=== PATIENT | male | born 1940 | race Caucasian/White ===

== ENCOUNTER 2016-10-13 09:54 | Inpatient (IN) ==
--- NOTE | 2016-10-13 10:35 | Emergency Department Note ---
Disposition Clinical Impression: Atrial fibrillation with rapid ventricular response Disposition: Admitted As Inpatient Condition: Fair Referrals: Rafael Ugarte MD [Primary Care Provider] - Forms: ED Satisfaction Letter Time of Disposition: 14:32 Arrhythmia/Palpitations HPI - General Chief Complaint: ED Arrhythmia/Palpitations Stated Complaint: "a-fib", EARLINE Time Seen by Provider: 10/13/16 10:23 Source: patient, family Mode of arrival: private vehicle Limitations: no limitations Nursing Notes Reviewed: Yes Vital Signs Reviewed: Yes - History of Present Illness Pt Subjective Complaint: rapid heart beat, atrial fibrillation Onset (ago): day(s) (About 3 days) Duration: constant Severity: severe Context: occurred during rest Arrhythmia History: atrial fibrillation Associated symptoms: Reports: shortness of breath. Denies: chest pain - Related Data Home Medications Medication Instructions Recorded Confirmed Aspirin 81 mg PO DAILY 09/29/15 10/13/16 Cholecalciferol (D-3) [Vitamin D] 2,000 unit PO DAILY 09/29/15 10/13/16 Finasteride [Proscar] 5 mg PO DAILY 09/29/15 10/13/16 Multivitamin [Multi-Day Vitamins] 1 each PO DAILY 09/29/15 10/13/16 Tamsulosin [Flomax] 0.4 mg PO DAILY 09/29/15 10/13/16 Vitamin E 100 unit PO DAILY 09/29/15 10/13/16 Atorvastatin [Lipitor] 40 mg PO HS 10/13/16 10/13/16 Cefdinir [Omnicef] 300 mg PO BID 10/13/16 10/13/16 Furosemide [Lasix] 20 mg PO DAILY 10/13/16 10/13/16 Warfarin [Coumadin] 10 mg PO 1800 10/13/16 10/13/16 Previous Rx's Medication Instructions Recorded Diltiazem CD (24hr) [Cardizem CD] 360 mg PO DAILY #30 cap.er.24h 10/03/15 Metoprolol XL (24 HR) Succ [Toprol 75 mg PO BID #60 tab.er.24h 10/03/15 Xl] Allergies Allergy/AdvReac Type Severity Reaction Status Date / Time No Known Allergies Allergy Verified 10/13/16 13:07 All systems ED: reviewed and negative except as stated. Constitutional: Denies: fever, chills ENT ED: Denies: ear pain, throat pain Cardiovascular: Denies: chest pain Respiratory: Reports: cough (And patient has been treated with 2 rounds of antibiotics for this cough which preceded the onset of rapid heart rate.), dyspnea Gastrointestinal: Denies: abdominal pain, nausea, vomiting Musculoskeletal: Denies: back pain Integumentary: Denies: rash Neurological: Denies: headache Past Medical History - Past Medical History Attestation: Yes The following information was validated with the patient. Source: patient, obtained from family, nursing notes reviewed Medical history: Reports: atrial fibrillation, other Surgical history: Reports: hip replacement, other Psychiatric history: Reports: no psych history - Social History Smoking Status: Never smoker Smokeless Tobacco Status: No Alcohol use: Reports: none Drug use: Reports: none Physical Exam - General Limitations: no limitations General appearance: alert, other (Appears a bit short of breath) - Head Head exam: atraumatic, normocephalic - Eye Eye exam: Present: normal appearance, PERRL, EOMI - ENT ENT exam: normal exam, normal oropharynx, mucous membranes moist, normal external ear exam - Neck Neck exam: Present: normal inspection, full ROM, trachea midline - Chest Chest inspection: Present: normal inspection, symmetric chest wall rise. Absent : tenderness - Respiratory Respiratory exam: Present: normal lung sounds bilaterally, other (Patient is tachypneic). Absent: wheezes - Cardiovascular Cardiovascular exam: Present: tachycardia, irregular rhythm - Abdominal Exam Abdominal exam: Present: soft, Non-Tender, normal bowel sounds - Extremities Exam Extremities exam: Present: normal inspection, full ROM, pedal edema (Very trace edema which patient says has been like that for a while.) - Back Exam Back exam: Present: normal inspection, full ROM. Absent: tenderness - Neurological Exam Neurological exam: Present: alert, oriented X3 - Psychiatric Psychiatric exam: Present: normal affect, normal mood - Skin Skin exam: Present: warm, dry. Absent: rash Course Course Narrative: Patient is a respiratory clear palpitations for the past 3 days. He is in atrial fibrillation with rapid ventricular response in the 170 range. He feels short of breath with it but no chest pain. Clinical examination is not consistent with congestive heart failure. We will start Cardizem. We are aware that the patient is on amiodarone and thus we will have to monitor the patient closely. We will also do a arrhythmia workup to look for other causes. According to the patient and family had his INR checked and is INR was only 1.4 on Friday. We will recheck that and if he still subtherapeutic we will start heparin. - Reevaluation(s) Reevaluation #1: Patient was a bit hypotensive before administration of the Cardizem. His heart rate is 170 something and he has been in this A. fib RVR for several days. Although his blood pressure is low he does not feel sick or in distress at this point. Therefore I am not going to cardiovert him. I will cautiously administer Cardizem. He had gotten the initial bolus and the drip is started but heart rate is still in the 160s so I am going to give the second dose of 15 mg of Cardizem. We will continue titration as long as he tolerates. Time: 11:38 Reevaluation #2: We have pretty much maximized the Cardizem without success. I went and spoke with the counter sales representative, , to help guide further treatment. Reviewing records with her refiled the patient has significant mitral valve regurgitation. This is probably what is making it difficult to get the A. fib under control. Having the lower blood pressure will be beneficial however. After vigorous review of the records and EKGs and results, the decision was made to heparinize the patient to make sure he is fully anticoagulated and then initiated amiodarone drip as well while discontinuing the Cardizem. She recommends admission to the hospitalist. Time: 14:30 - Consultations Consultation #1: , cardiology - I discussed case with counter sales representative and please refer to my course note for the details and results of that conversation. Time: 14:30 Consultation #2: Dr. Kinsey, hospitalist - I discussed the case with the hospitalist. We talked about presentation and treatments and the consultation with cardiology. He has accepted the patient for admission. Time: 14:48 Vital Signs Temperature 97.8 F 10/13/16 09:55 Pulse Rate 185 10/13/16 09:55 Respiratory Rate 18 10/13/16 09:55 Blood Pressure 102/69 10/13/16 09:55 O2 Sat by Pulse Oximetry 95 10/13/16 09:55 Temperature 97.8 F 10/13/16 09:55 Pulse Rate 142 10/13/16 13:25 Respiratory Rate 20 10/13/16 13:10 Blood Pressure 94/78 10/13/16 13:25 O2 Sat by Pulse Oximetry 94 10/13/16 13:10 Oxygen Delivery Oxygen Delivery Nasal Cannula Arrhythmia/Palpitations - Medical Records Medical records reviewed: Yes I reviewed the patient's medical records. - Lab Data Lab results reviewed: Yes I reviewed the patient's lab results. Result diagrams: 10/13/16 10:30 10/13/16 10:30 Lab Results 10/13/16 10/13/16 10/13/16 Range/Units 10:30 10:30 10:30 WBC 8.7 (4.3-11.1) K/mcL RBC 4.45 (4.19-5.50) M/mcL Hgb 13.1 (12.9-16.9) g/dL Hct 38.5 (37.5-50.1) % MCV 86.5 (83.0-100.0) fL MCH 29.4 (28.0-33.3) pg MCHC 34.0 (31.6-35.5) g/dL RDW 13.7 (11.5-14.5) % Plt Count 91 L (140-400) K/mcL MPV 12.6 H (9.4-12.4) fL Immature Gran % 0.7 (0-4) % Seg Neutrophils % 65.6 % Lymphocytes % 22.6 % Monocytes % 10.5 % Eosinophils % 0.1 % Basophils % 0.5 % Neutrophils # 5.7 (1.6-8.9) K/mcL Lymphocytes # 2.0 (0.6-4.6) K/mcL Monocytes # 0.9 (0.0-1.3) K/mcL Eosinophils # 0.0 (0.0-0.6) K/mcL Basophils # 0.0 (0.0-0.2) K/mcL Reactive Lymphocytes Present A (Not Present) Platelet Estimate Decreased L (Normal) Large Platelets Present A (Not Present) Immature Plt Fraction 11.2 H (1.1-6.1) % PT 19.8 H (9.4-12.1) Seconds INR 1.8 APTT 32.5 (26.0-36.0) Seconds Sodium 130 L (136-145) mEq/L Potassium 4.1 (3.5-4.5) mEq/L Chloride 100 (98-109) mEq/L Carbon Dioxide 22 (19-29) mEq/L BUN 31 H (8-26) mg/dL Creatinine 1.61 H (0.72-1.25) mg/dL Est GFR ( Amer) 51 L (> 60) Est GFR (Non-Af Amer) 42 L (> 60) BUN/Creatinine Ratio 19 (6-26) Glucose 151 H (70-99) mg/dL Calculated Osmolality 279 L (280-300) Calcium 8.5 L (8.6-10.8) mg/dL Troponin I (0-0.03) ng/mL TSH 3.524 (0.350-4.840) mcIU/mL 10/13/16 Range/Units 10:30 WBC (4.3-11.1) K/mcL RBC (4.19-5.50) M/mcL Hgb (12.9-16.9) g/dL Hct (37.5-50.1) % MCV (83.0-100.0) fL MCH (28.0-33.3) pg MCHC (31.6-35.5) g/dL RDW (11.5-14.5) % Plt Count (140-400) K/mcL MPV (9.4-12.4) fL Immature Gran % (0-4) % Seg Neutrophils % % Lymphocytes % % Monocytes % % Eosinophils % % Basophils % % Neutrophils # (1.6-8.9) K/mcL Lymphocytes # (0.6-4.6) K/mcL Monocytes # (0.0-1.3) K/mcL Eosinophils # (0.0-0.6) K/mcL Basophils # (0.0-0.2) K/mcL Reactive Lymphocytes (Not Present) Platelet Estimate (Normal) Large Platelets (Not Present) Immature Plt Fraction (1.1-6.1) % PT (9.4-12.1) Seconds INR APTT (26.0-36.0) Seconds Sodium (136-145) mEq/L Potassium (3.5-4.5) mEq/L Chloride (98-109) mEq/L Carbon Dioxide (19-29) mEq/L BUN (8-26) mg/dL Creatinine (0.72-1.25) mg/dL Est GFR ( Amer) (> 60) Est GFR (Non-Af Amer) (> 60) BUN/Creatinine Ratio (6-26) Glucose (70-99) mg/dL Calculated Osmolality (280-300) Calcium (8.6-10.8) mg/dL Troponin I 0.02 (0-0.03) ng/mL TSH (0.350-4.840) mcIU/mL - Radiology Data Radiology results reviewed: Yes I reviewed the patient's radiology results. - EKG Data EKG attestation: Yes I reviewed and interpreted this EKG. EKG shows normal: axis, QRS complexes, ST-T waves Rate: tachycardia Rhythm: A.Fib Interpretation: other (Intrafibrillation with rapid ventricular response. His last EKG from September 2015 shows a sinus rhythm.) Critical Care Time Critical Care Time: Yes Total Critical Care Time: 60 Attestation: Patient fibrillation with rapid ventricular response requiring my urgent evaluation and intervention. Patient had periods of low blood pressure as well requiring me to respond. We used Cardizem drip. I had a cardiology consultation. We are starting amiodarone, heparinization as well.
[2016-10-13 10:41] LABS: Basophils % 0.5 %; Hemoglobin 13.1 g/dL (12.9-16.9); Immature Granulocytes % 0.7 % (0-4)
[2016-10-13 10:43] LABS: Eosinophils % 0.1 %; Hematocrit 38.5 % (37.5-50.1); Immature Platelets 11.2 % (1.1-6.1); Lymphocytes % 22.6 %; Mean Corpuscular Hemoglobin 29.4 pg (28.0-33.3); Mean Corpuscular Volume 86.5 fL (83.0-100.0); Mean Platelet Volume 12.6 fL (9.4-12.4); Monocytes # 0.9 K/mcL (0.0-1.3); Monocytes % 10.5 %; Neutrophils # 5.7 K/mcL (1.6-8.9); Red Blood Count 4.45 M/mcL (4.19-5.50); Red Cell Distribution Width 13.7 % (11.5-14.5); Segmented Neutrophils % 65.6 %
[2016-10-13] MEDS ORDERED: 0.9 % Sodium Chloride 500 ML ONE (10:47)
[2016-10-13 10:50] LABS: INR 1.8; Prothrombin Time 19.8 Seconds (9.4-12.1)
[2016-10-13 10:52] LABS: Activated Partial Thrombo Time 32.5 Seconds (26.0-36.0)
[2016-10-13 10:53] LABS: Calcium 8.5 mg/dL (8.6-10.8); Potassium 4.1 mEq/L (3.5-4.5)
[2016-10-13] MEDS: 0.9 % Sodium Chloride 500 ML IVC ONE ×2 (11:06→12:24)
[2016-10-13 11:15] LABS: Thyroid Stimulating Hormone 3.524 mcIU/mL (0.350-4.840)
[2016-10-13 11:25] LABS: Platelet Count 91 K/mcL (140-400)
[2016-10-13 11:26] LABS: Large Platelets Present (Not Present); Platelet Estimate Decreased (Normal); Reactive Lymphocytes Present (Not Present)
[2016-10-13] MEDS ORDERED: *HR* Heparin 5,000 UNIT/ML VIAL IVP ONE (14:26)
[2016-10-13] MEDS ORDERED: *HR* Heparin 5,000 UNIT/ML VIAL IVP PRN ×2 (14:26)
[2016-10-13] MEDS: Heparin 25,000 UNIT/500 ML D5W 25,000 UNIT/500 ML MLS IVC SCH (14:52)
[2016-10-13] MEDS: Amiodarone Premix 360 MG/200 ML BAG IVC ONE ×2 (14:52→20:37)
[2016-10-13] MEDS ORDERED: Acetaminophen 325 MG TABLET PO PRN (16:02)
[2016-10-13] MEDS ORDERED: Ondansetron 4 MG/2 ML VIAL IVP PRN (16:02)
[2016-10-13] MEDS ORDERED: *HR* Morphine 2 MG/ML SYRINGE IVP PRN (16:02)
[2016-10-13] MEDS ORDERED: Naloxone 0.4 MG/ML INJ IVP PRN (16:02)
[2016-10-13] MEDS: 0.9 % Sodium Chloride 1,000 ML IVC SCH (16:45)
[2016-10-13] MEDS: Aspirin 81 MG TAB.CHEW PO SCH (16:45)
[2016-10-13] MEDS ORDERED: *HR* Warfarin 5 MG TABLET PO SCH (18:00)
[2016-10-13] MEDS: Famotidine 20 MG/2 ML VIAL IVP SCH (18:27)
--- NOTE | 2016-10-13 18:48 | Internal Med History&Physical ---
Date of Encounter: 10/13/16 Time of Encounter: 18:10 Assessment and Plan (1) Atrial fibrillation with rapid ventricular response Current visit: Yes Status: Acute Chronic atrial fibrillation now with rapid ventricular response Continue IV amiodarone - per cardiology recommendations IV diltiazem has caused hypotension Continue IV heparin in view of subtherapeutic INR Continue Coumadin Watch for fluid overload Strict I's and O's, daily weight Repeat PT/INR in a.m. Labs in a.m. (2) CHF (congestive heart failure) Current visit: Yes Status: Chronic Congestive heart failure likely diastolic dysfunction with LVEF 50-55% - no signs of exacerbation at this time Chest x-ray - stable cardiomegaly but no acute process BN peptide - 1365 Watch for fluid overload Strict I's and O's, continuous pulse ox cardiac telemetry IV Lasix if patient develops signs of acute heart failure Qualifiers: Congestive heart failure type: diastolic Congestive heart failure chronicity: chronic Qualified Code(s): I50.32 - Chronic diastolic (congestive ) heart failure (3) Mitral regurgitation Current visit: No Status: Chronic Echocardiogram (08/17/2016) LVEF 50-55%, endocrine and diastolic function Severely dilated LA, moderately dilated RA, moderate to severely calcified Aortic valve with restricted leaflet excursion Normal RV size and function Mild to moderate MR and [id number] AR Follows up with cardiology regularly - not scheduled for surgery as yet Qualifiers: Cardiac valve disease etiology: nonrheumatic Qualified Code(s): I34.0 - Nonrheumatic mitral (valve) insufficiency (4) CAD (coronary artery disease) Current visit: No Status: Chronic Mild coronary artery disease seen on left heart catheter in 2016, stable Troponin negative Continue aspirin and statin Qualifiers: Coronary Disease-Associated Artery/Lesion type: [place] artery Qualified Code(s): I25.10 - Atherosclerotic heart disease of [place] coronary artery without angina pectoris (5) DVT prophylaxis Current visit: Yes Status: Acute Continue IV heparin and Coumadin Internal Medicine - H&P: HPI Chief complaint: Palpitations and shortness of breath Admitted From: Emergency Dept Plans for Post Hospital Care: Home History of present illness: Mr. Delaney is a 75 year old male with past medical history of chronic atrial fibrillation on Coumadin, severe Mitral Regurgitation, CHF, mild coronary artery disease, hyperlipidemia and hypertension. Patient presented to the ED with complaints of palpitations or shortness of breath and generalized weakness. Patient states symptoms started about 1 week ago and have gradually worsened. He says he stays short of breath most of the time. He does have a history of CHF but does not use supplemental home oxygen. On examination patient is awake and alert. He is in mild discomfort due to shortness of breath. He is able to provide history and able to answer questions appropriately. His son and are at bedside, and they also provide history. Patient has mitral regurgitation and has been seen by company truck driver at [place] or [place] for possible surgery. Patient denies chest pain, denies headache, denies abdominal pain and denies vomiting or fever or diarrhea. His only complaints are palpitations and shortness of breath. He is seeing his primary care physician a few days ago and is being treated for a upper respiratory infection. He was also been seen at the anticoagulation clinic recently and his Coumadin dose has been increased because his INR was subtherapeutic. Initial evaluation in the ED revealed atrial fibrillation with RVR. elevated BNP peptide, hypotension, subtherapeutic INR and chest x-ray did not show any acute process. Cardiology consult from ED. Initial IV Cardizem caused hypotension, this was then switched to IV amiodarone. IV heparin has been continued in view of subtherapeutic INR. Patient does not seem to have obvious signs of CHF exacerbation at this time. He will be on IV fluids in view of hypotension. If he does develop any signs of heart failure exacerbation we will stop his fluids and give Lasix. At this time we will continue his aspirin and atorvastatin and all her home medications. Patient and family have been explained about his condition and plan of care. They understood and agreed. No unanswered questions. CODE STATUS full code. Past Med Surg Social Fam HX - Past Medical History Medical history: atrial fibrillation, other Psychiatric history: no psych history - Past Surgical History Surgical History: hip replacement, other - Social History Smoking Status: Never smoker Smokeless Tobacco Status: No Alcohol use: none Drug use: none - Family History Mother Living Status: Father Hx Family HEENT Disorders: Yes Internal Medicine - H&P: Meds Aspirin 81 mg PO DAILY 09/29/15 [History] Cholecalciferol (D-3) [Vitamin D] 2,000 unit PO DAILY 09/29/15 [History] Finasteride [Proscar] 5 mg PO DAILY 09/29/15 [History] Multivitamin [Multi-Day Vitamins] 1 each PO DAILY 09/29/15 [History] Tamsulosin [Flomax] 0.4 mg PO DAILY 09/29/15 [History] Vitamin E 100 unit PO DAILY 09/29/15 [History] Diltiazem CD (24hr) [Cardizem CD] 360 mg PO DAILY #30 cap.er.24h 10/03/15 [Rx] Metoprolol XL (24 HR) Succ [Toprol Xl] 75 mg PO BID #60 tab.er.24h 10/03/15 [Rx] Atorvastatin [Lipitor] 40 mg PO HS 10/13/16 [History] Cefdinir [Omnicef] 300 mg PO BID 10/13/16 [History] Furosemide [Lasix] 20 mg PO DAILY 10/13/16 [History] Warfarin [Coumadin] 10 mg PO 1800 10/13/16 [History] Allergies No Known Allergies Allergy (Verified 10/13/16 13:07) All Systems PM: A 10-system review of systems was performed and is negative for pertinent findings except as documented above in the HPI. - Constitutional Constitutional: fatigue, weakness, no fever(s) - EENT Eyes: no blurry vision, no loss of vision - Cardiovascular Cardiovascular ROS IM: dyspnea, dyspnea on exertion, edema, orthopnea, palpitations, no chest pain, no diaphoresis, no syncope - Respiratory Respiratory: cough, dyspnea, dyspnea on exertion, chest congestion, no hemoptysis, no wheezing - Gastrointestinal Gastrointestinal: no abdominal pain, no bloating, no diarrhea, no melena, no nausea, no vomiting - Genitourinary Genitourinary ROS male: difficulty urinating, no dysuria - Musculoskeletal Musculoskeletal ROS IM: no arthralgias - Neurological Neurological ROS: no abnormal gait, no abnormal speech, no dizziness, no numbness, no tingling - Constitutional Vitals: Temp Pulse Resp BP Pulse Ox 98.3 F 149 20 100/81 92 10/13/16 17:29 10/13/16 17:29 10/13/16 17:29 10/13/16 17:29 10/13/16 17:29 General appearance: Present: A&O X 3, pleasant, no acute distress, answers questions appropriately Exam: Ill-appearing, generalized weakness, mild discomfort due to shortness of breath - Head Head exam: Present: atraumatic - Eye Eye exam: Present: EOMI - Neck Neck exam general surgery: Present: supple - Respiratory Respiratory exam: Present: accessory muscle use, decreased breath sounds (In both bases), tachypnea. Absent: rales, rhonchi, wheezes Additional comments: Clear to auscultation bilaterally with decreased breath sounds in both bases. - Cardiovascular Cardiovascular exam: Present: irregular rhythm, +S1, +S2, systolic murmur, tachycardia - GI/Abdominal GI/Abdominal exam: Present: soft, no peritoneal signs. Absent: distended, firm , guarding, rigid, tenderness - Extremities Exam Extremities exam: Present: pedal edema (Mild bilateral pitting 1+ ), radial pulses palpable and symetrical. Absent: cyanotic, tenderness - Neurological Exam Neurological exam: Present: alert, oriented X3, no focal deficits. Absent: facial droop, speech deficit Internal Med - H&P Results - Labs CBC & Chem 7: 10/13/16 10:30 10/13/16 10:30 Labs: Cardiac Enzymes 10/13/16 Range/Units 16:21 Troponin I 0.02 (0-0.03) ng/mL
[2016-10-13 18:49] LABS: Bilirubin,Urine Small (Negative); Blood,Urine Trace (Negative); Clarity,Urine Clear (Clear); Color,Urine Dark Yellow (Yellow); Glucose,Urine (UA) Normal (Normal); Ketones,Urine Trace mg/dL (Negative); Leukocyte Esterase,Urine Trace (Negative); Nitrite,Urine Negative (Negative); PH,Urine 5.5 pH Units (5.0-8.0); Protein,Urine 100 mg/dL (Neg-Trace); Specific Gravity,Urine 1.025 (1.010-1.025); Urobilinogen,Urine Normal (Normal)
[2016-10-13 18:50] LABS: Bacteria,Urine None Seen per hpf (None-Few); Squamous Epithelial Cell,Urine Many per lpf (None-Few)
[2016-10-13 18:59] LABS: Hyaline Casts,Urine Few per lpf (None-Few); Mucus,Urine Few (Few)
[2016-10-13 19:00] LABS: Granular Casts,Urine Few per lpf (None Seen)
[2016-10-13] MEDS ORDERED: Amiodarone Premix 360 MG/200 ML BAG IVC ONE (20:32)
[2016-10-13] MEDS: Metoprolol XL (24 HR) Succ 50 MG TAB.ER.24H PO SCH (20:46)
[2016-10-13] MEDS: Amiodarone Premix 360 MG/200 ML BAG IVC SCH (21:00)
[2016-10-13 22:06] LABS: Activated Partial Thrombo Time 192.2 Seconds (26.0-36.0)
[2016-10-13 22:16] LABS: Heparin anti-factor XA UFH 0.78 IU/mL (0.30-0.70)
[2016-10-14 04:49] LABS: Basophils # 0.1 K/mcL (0.0-0.2); Basophils % 0.5 %; Eosinophils % 0.1 %; Hematocrit 37.3 % (37.5-50.1); Hemoglobin 12.5 g/dL (12.9-16.9); Immature Granulocytes % 0.9 % (0-4); Lymphocytes # 2.5 K/mcL (0.6-4.6); Lymphocytes % 25.3 %; Mean Corpuscular HGB Conc 33.5 g/dL (31.6-35.5); Mean Corpuscular Hemoglobin 29.1 pg (28.0-33.3); Mean Corpuscular Volume 86.7 fL (83.0-100.0); Mean Platelet Volume 12.6 fL (9.4-12.4); Monocytes # 0.9 K/mcL (0.0-1.3); Monocytes % 9.2 %; Neutrophils # 6.3 K/mcL (1.6-8.9); Red Cell Distribution Width 14.1 % (11.5-14.5)
[2016-10-14 04:52] LABS: Platelet Count 96 K/mcL (140-400)
[2016-10-14 04:53] LABS: INR 2.4; Prothrombin Time 26.6 Seconds (9.4-12.1)
[2016-10-14 04:56] LABS: Activated Partial Thrombo Time 86.1 Seconds (26.0-36.0)
[2016-10-14 05:08] LABS: Albumin 2.9 g/dL (3.5-5.0); Albumin/Globulin Ratio 0.9 (1.1-2.2); Bilirubin,Total 2.1 mg/dL (0.2-1.2); Calcium 7.9 mg/dL (8.6-10.8); Globulin 3.4 g/dL (2.4-3.5); Total Protein 6.3 g/dL (6.0-8.3)
[2016-10-14 05:43] LABS: Platelet Estimate Slight Decrease (Normal); Reactive Lymphocytes Present (Not Present)
[2016-10-14] MEDS: Famotidine 20 MG/2 ML VIAL IVP SCH (05:47)
[2016-10-14] MEDS: Diltiazem CD (24hr) 180 MG CAPSULE PO SCH (07:48)
[2016-10-14] MEDS: Cholecalciferol (D-3) 1,000 UNIT TABLET PO SCH (07:49)
[2016-10-14] MEDS: Metoprolol XL (24 HR) Succ 50 MG TAB.ER.24H PO SCH ×2 (07:49→22:29)
[2016-10-14] MEDS: Furosemide 20 MG TABLET PO SCH (07:49)
[2016-10-14] MEDS: Finasteride 5 MG TABLET PO SCH (07:50)
[2016-10-14] MEDS: Multivit/Ca/Min/Fe/FA 1 TAB TABLET PO SCH (07:50)
[2016-10-14] MEDS: Aspirin 81 MG TAB.CHEW PO SCH (07:50)
[2016-10-14] MEDS: VITAMIN E PO SCH (07:50)
[2016-10-14] MEDS: Amiodarone Premix 360 MG/200 ML BAG IVC SCH ×2 (07:51→17:34)
[2016-10-14] MEDS: Heparin 25,000 UNIT/500 ML D5W 25,000 UNIT/500 ML MLS IVC SCH (09:58)
--- NOTE | 2016-10-14 10:27 | Cardiology Consult Note ---
Date of Encounter: 10/14/16 Time of Encounter: 09:00 Assessment and Plan (1) Atrial fibrillation with rapid ventricular response Current Visit: Yes Status: Acute Presented with afib with RVR, etiology unclear. Reports URI symptoms x2+ weeks with failed outpatient treatment. Hx of afib/flutter s/p DERRICK/DCCV last summer with early recurrence of afib. Has since been rate controlled on oral BB and CCB. Anticoagulated on Coumadin, INR followed by [facility]. INR subtherapeutic upon admission, now 2.4. Will stop IV heparin gtt and consult inpatient pharmacy to dose as inpatient. Rate remains poorly controlled, avg IO=466 over the past 12 hours--on IV amiodarone gtt and was given 360 mg Cardizem CD and lopressor 75 mg this AM. Hypotensive upon exam. Discussed with Dr. Hernández, will complete IV amiodarone load and give bolus now. Suspect difficulty with rate control until underlying issue has resolved, may require DCCV. Will continue to follow closely. (2) Valvular heart disease Current Visit: Yes Status: Acute Known severe and moderate MR--has been referred to [facility] for replacement evaluation; medical therapy has been recommended at this time. (3) CAD (coronary artery disease) Current Visit: Yes Status: Chronic Mild, non-obstructive CAD per [facility] in 2016. Qualifiers: Coronary Disease-Associated Artery/Lesion type: [place] artery [place] vs. transplanted heart: [place] heart Associated angina: without angina Qualified Code(s): I25.10 - Atherosclerotic heart disease of [place] coronary artery without angina pectoris Discussion w patient/family: The assessment and plan as outlined above was discussed with the patient and/or family members who expressed understanding and agreement. All questions were answered. Thank you for involving us in the care of your patient. Please call with any questions. The patient will be discussed and reviewed with Dr. Hernández; changes to be made accordingly. History of Present Illness Consult date: 10/14/16 Requesting physician: Dangelo Maurice Consult reason: Afib with RVR Chief complaint: Shortness of breath History of present illness: Mr. Delaney is a 75 year old male with PMHx significant for Afib (coumadin) , valvular heart disease, HTN, non-obstructive CAD, and arthritis who presented to the ED with shortness of breath. He reports he was initially treated as outpatient for URI symptoms felt better for a few days and then symptoms came back. He reports his heart rates have steadily increased since then as well. Hx of TTE guided DCCV last summer with early recurrence of Afib--has been on rate control strategy since then, has alos been evaluated at [facility] for valvular heart disease who recommended medical management at this time. Patient reports recently followed with CT surgeon after severe as per echo below, was recommended to follow-up with Cardiology to improve rate control of afib. Recent CV testing: TTE 08/17/16: LVEF 50-55%, mild-moderate MR, mild-moderate AR, normal right ventricular size and function, severely dilated left atrium, moderately dilated right atrium,moderate-severely calcified aortic valve with restricted leaflet excursion appears trileaflet, severe aortic stenosis. Peak velocity 4.05 m/sec, mean gradient 37 mmHg,aortic valve area 0.95 cm2, mild-moderate aortic regurgitation, mild- moderate mitral regurgitation, mild tricuspid regurgitation, mild pulmonary hypertension. Estimated RVSP = 41 mmHg, All wall segments showed normal motion. Past Med Surg Social Fam HX - Past Medical History Attestation: Yes The following information was validated with the patient. Source: patient Medical history: arthritis, atrial fibrillation, coronary artery disease (non- obstructive), hypertension, valvular heart disease Psychiatric history: no psych history - Past Surgical History Surgical History: hip replacement - Social History Smoking Status: Never smoker Smokeless Tobacco Status: No Alcohol use: none Drug use: none - Family History Mother Living Status: Age at : 27 Cause of : "WHIMSY" DIPTHERIA Hx Family Cancer: Yes Father Living Status: Age at : 71 Cause of : SCLERODERMA Hx Family Cardiac Disorders: Yes Hx Family Respiratory Disorders: No Hx Family Cancer: Yes (SON OF PRIMARY LIVER CANCER AGE 50) Hx Family GI Disorders: No Hx Family Genitourinary Disorders: No Hx Family Endocrine Disorder: No Hx Family Musculoskeletal Disorders: No Hx Family Neuromuscular Disorders: No Hx Family Neurologic Disorders: No Hx Family HEENT Disorders: No Hx Family Autoimmune Disorders: Yes (FATHER OF SCLERODERMA) Hx Family Reproductive Disorders: No Hx Family Psychosocial Disorders: No Medications and Allergies Aspirin 81 mg PO DAILY 09/29/15 [History] Cholecalciferol (D-3) [Vitamin D] 2,000 unit PO DAILY 09/29/15 [History] Finasteride [Proscar] 5 mg PO DAILY 09/29/15 [History] Multivitamin [Multi-Day Vitamins] 1 each PO DAILY 09/29/15 [History] Tamsulosin [Flomax] 0.4 mg PO DAILY 09/29/15 [History] Vitamin E 100 unit PO DAILY 09/29/15 [History] Diltiazem CD (24hr) [Cardizem CD] 360 mg PO DAILY #30 cap.er.24h 10/03/15 [Rx] Metoprolol XL (24 HR) Succ [Toprol Xl] 75 mg PO BID #60 tab.er.24h 10/03/15 [Rx] Atorvastatin [Lipitor] 40 mg PO HS 10/13/16 [History] Cefdinir [Omnicef] 300 mg PO BID 10/13/16 [History] Furosemide [Lasix] 20 mg PO DAILY 10/13/16 [History] Warfarin [Coumadin] 10 mg PO 1800 10/13/16 [History] Allergies No Known Allergies Allergy (Verified 10/13/16 13:07) All Systems Review: A 10-system review of systems was performed and is negative for pertinent findings except as documented above in the HPI. - Cardiovascular Cardiovascular: as per HPI Physical Examination Vital Signs, Last 4 Hours Temp Pulse Resp BP Pulse Ox 10/14/16 08:53 156 91/64 10/14/16 07:30 165 116/74 10/14/16 07:14 97.8 F 170 32 116/74 94 General: Conversant, Other (conversational dyspnea, diaphoretic) Cardiac: Other (tachycardiac, irregulary irregular) Lungs: Normal Breath Sounds Neuro: Alert and responsive, No focal deficits noted Abdomen: Soft Skin: No rashes noted on visualized skin Musculoskeletal: No Chest Wall Tenderness Extremities: Other (mild BLE edema, non-pitting) Results 10/14/16 04:34 10/14/16 04:34 Lab Results 10/13/16 10/13/16 10/13/16 16:21 16:21 16:21 WBC Hgb Hct Plt Count INR APTT Sodium Potassium Chloride Carbon Dioxide BUN Creatinine Glucose Calcium Magnesium 2.1 Total Bilirubin AST ALT Alkaline Phosphatase Troponin I 0.02 B-Natriuretic Peptide 1365 H 10/13/16 10/13/16 10/14/16 21:24 21:24 04:34 WBC 9.8 Hgb 12.5 L Hct 37.3 L Plt Count 96 L INR APTT 192.2 H* D Sodium Potassium Chloride Carbon Dioxide BUN Creatinine Glucose Calcium Magnesium Total Bilirubin AST ALT Alkaline Phosphatase Troponin I 0.02 B-Natriuretic Peptide 10/14/16 10/14/16 10/14/16 04:34 04:34 04:34 WBC Hgb Hct Plt Count INR 2.4 APTT 86.1 H D Sodium 130 L Potassium 4.0 Chloride 100 Carbon Dioxide 21 BUN 33 H Creatinine 1.60 H Glucose 134 H Calcium 7.9 L Magnesium Total Bilirubin 2.1 H AST 55 H ALT 45 Alkaline Phosphatase 77 Troponin I 0.02 B-Natriuretic Peptide Active Medications Acetaminophen (Tylenol) 650 mg PO Q6HR PRN PRN Reason: Mild Pain (1-3) Stop: 04/14/17 16:03 Aspirin (Aspirin) 81 mg PO DAILY [facility] Stop: 04/14/17 16:01 Last Admin: 10/14/16 07:50 Dose: 81 mg Atorvastatin Calcium (Lipitor) 40 mg PO HS [facility] Stop: 04/14/17 21:01 Last Admin: 10/13/16 20:46 Dose: 40 mg Diltiazem HCl (Cardizem Cd) 360 mg PO DAILY [facility] Stop: 04/15/17 09:01 Last Admin: 10/14/16 07:48 Dose: 360 mg Famotidine (Pepcid) 10 mg IVP Q12HR [facility] Stop: 04/14/17 18:01 Last Admin: 10/14/16 05:47 Dose: 10 mg Finasteride (Proscar) 5 mg PO DAILY [facility] PRN Reason: Protocol Stop: 04/15/17 09:01 Last Admin: 10/14/16 07:50 Dose: 5 mg Furosemide (Lasix) 20 mg PO DAILY [facility] Stop: 04/15/17 09:01 Last Admin: 10/14/16 07:49 Dose: 20 mg Heparin Sodium (Porcine) (Heparin) 7,600 unit 70 unit/kg (7600 unit) IVP Q6HR PRN PRN Reason: SEE COMMENTS Stop: 04/14/17 14:27 Heparin Sodium (Porcine) (Heparin) 3,800 unit 35 unit/kg (3800 unit) IVP Q6H PRN PRN Reason: SEE COMMENTS Stop: 04/14/17 14:27 Heparin Sodium/Dextrose (Heparin 25,000 Unit/500 Ml D5w) 25,000 unit in 500 mls @ 30.481 mls/hr IVC .[id number] RON; 14 UNIT/KG/HR PRN Reason: Protocol Stop: 04/14/17 14:31 Last Admin: 10/14/16 09:58 Dose: 11 unit/kg/hr, 23.95 mls/hr Sodium Chloride (0.9 % Sodium Chloride) 1,000 mls @ 100 mls/hr IVC .Q10H [facility] Stop: 04/14/17 16:16 Last Admin: 10/13/16 16:45 Dose: 100 mls/hr Amiodarone HCl/Dextrose (Amiodarone Drip Premix 360mg/200ml) 360 mg in 200 mls @ 16.667 mls/hr IVC CONT RON PRN Reason: 0.5 MG/MIN Stop: 04/14/17 21:16 Last Admin: 10/14/16 07:51 Dose: 0.5 mg/min, 16.7 mls/hr Metoprolol Succinate (Toprol Xl) 75 mg PO BID [facility] Stop: 04/14/17 21:01 Last Admin: 10/14/16 07:49 Dose: 75 mg Morphine Sulfate (Morphine Sulfate) 2 mg IVP Q4HR PRN PRN Reason: Severe Pain (7-10) Stop: 04/14/17 16:03 Multivitamins/Calcium (Thera M Plus) 1 tab PO DAILY [facility] Stop: 04/15/17 09:01 Last Admin: 10/14/16 07:50 Dose: 1 tab Naloxone HCl (Narcan) 0.4 mg IVP Q2MIN PRN PRN Reason: Opioid Reversal Stop: 04/14/17 16:03 Ondansetron HCl (Zofran) 4 mg IVP Q8HR PRN PRN Reason: Nausea And Vomiting Stop: 04/14/17 16:03 Pharmacy Profile Note (Patient Taking Own Medication) 0 each PO DAILY [facility] Stop: 04/15/17 09:01 Last Admin: 10/14/16 07:50 Dose: Not Given Tamsulosin HCl (Flomax) 0.4 mg PO DAILY RON PRN Reason: Protocol Stop: 04/15/17 09:01 Last Admin: 10/14/16 07:49 Dose: 0.4 mg Vitamin D (Vitamin D) 2,000 unit PO DAILY RON Stop: 04/15/17 09:01 Last Admin: 10/14/16 07:49 Dose: 2,000 unit Warfarin Sodium (Coumadin) 10 mg PO 1800 [facility] Stop: 04/14/17 18:01 Last Admin: 10/13/16 18:27 Dose: 10 mg - Imaging and Cardiology Echo: report reviewed Other Results: 12 hour tele: avg [id number] afib. - EKG Interpretation EKG results cardiology: personally reviewed Consult Discharge Plan - Plan Referrals: Rafael Ugarte MD [Primary Care Provider] - (SENT WEB REQUEST ON 10-14-16 @ [id number])
[2016-10-14] MEDS ORDERED: Amiodarone Premix 150 MG/100 ML BAG IVPB ONE (10:56)
--- NOTE | 2016-10-14 12:15 | Electrocardiograph Report ---
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
--- NOTE | 2016-10-14 12:32 | Electrocardiograph Report ---
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
[2016-10-14 14:34] LABS: ABG Base Excess -1.6 mEq/L (-2.0 to 3.0); ABG HCO3 21.1 mEQ/L (21-27); ABG Oxygen Saturation 97 % (95-98); ABG PCO2 29 mmHg (35-45); ABG PH 7.47 pH Units (7.32-7.45); ABG PO2 89 mmHg (85-104)
[2016-10-14 14:36] LABS: Blood Gas FiO2 36 %
[2016-10-14 14:37] LABS: Blood Gas Liter Flow 4 L/MIN
[2016-10-14] MEDS: Famotidine 20 MG TABLET PO SCH (17:33)
[2016-10-14] MEDS ORDERED: *HR* Warfarin 5 MG TABLET PO SCH (18:00)
[2016-10-14] MEDS ORDERED: Warfarin perPT PO PRN (18:00)
--- NOTE | 2016-10-14 19:12 | Internal Med Progress Note ---
Date of Encounter: 10/14/16 Time of Encounter: 19:08 - Assessment and plan (1) Acute systolic (congestive) heart failure Current Visit: Yes Status: Acute (2) Severe aortic stenosis by prior echocardiogram Current Visit: Yes Status: Acute (3) Mitral regurgitation Current Visit: Yes Status: Chronic Qualifiers: Cardiac valve disease etiology: nonrheumatic Qualified Code(s): I34.0 - Nonrheumatic mitral (valve) insufficiency (4) CAD (coronary artery disease) Current Visit: Yes Status: Chronic Qualifiers: Coronary Disease-Associated Artery/Lesion type: [place] artery [place] vs. transplanted heart: [place] heart Associated angina: without angina Qualified Code(s): I25.10 - Atherosclerotic heart disease of [place] coronary artery without angina pectoris (5) Atrial fibrillation with rapid ventricular response Current Visit: Yes Status: Acute - Subjective Interval history: Mr. Delaney is a 75 year old male with past medical history of chronic atrial fibrillation on Coumadin, severe Mitral Regurgitation, CHF, mild coronary artery disease, hyperlipidemia and hypertension. Per cardiology he has severe aortic stenosis for which he was evaluated in [place] and was and was recommended to control heart rate first. Here he has been a started on amiodarone drip and IV Lasix. - Constitutional Vitals: Temp Pulse Resp BP Pulse Ox 98.4 F 146 26 102/61 97 10/14/16 16:59 10/14/16 17:31 10/14/16 16:59 10/14/16 17:31 10/14/16 16:59 General appearance: Present: A&O X 3, pleasant, no acute distress, answers questions appropriately - Head Head exam: Present: atraumatic, normocephalic - Eye Eye exam: Present: PERRL, conjuntiva pink, sclera anicteric Pupils: Present: PERRL - Neck Neck exam general surgery: Present: supple, trachea midline. Absent: lymphadenopathy - Respiratory Respiratory exam: Present: CTAB, rales. Absent: accessory muscle use, rhonchi, wheezes - Cardiovascular Cardiovascular exam: Present: RRR, +S1, +S2. Absent: diastolic murmur, gallop, rubs, systolic murmur - GI/Abdominal GI/Abdominal exam: Present: normal bowel sounds, soft, no peritoneal signs. Absent: distended, tenderness - Extremities Exam Extremities exam: Present: pedal edema, warm, radial pulses palpable and symetrical. Absent: calf tenderness, cyanotic - Neurological Exam Neurological exam: Present: CN II-XII intact, oriented X3, no focal deficits. Absent: pronater drift, facial droop, speech deficit - Skin Skin exam: Present: dry, intact Internal Medicine: Result - Labs CBC & Chem 7: 10/14/16 04:34 10/14/16 04:34 Labs: Short CBC 10/14/16 Range/Units 04:34 WBC 9.8 (4.3-11.1) K/mcL Hgb 12.5 L (12.9-16.9) g/dL Hct 37.3 L (37.5-50.1) % Plt Count 96 L (140-400) K/mcL Neutrophils # 6.3 (1.6-8.9) K/mcL BMP 10/14/16 04:34 Sodium 130 L Potassium 4.0 Chloride 100 Carbon Dioxide 21 BUN 33 H Creatinine 1.60 H Glucose 134 H Calcium 7.9 L Cardiac Enzymes 10/13/16 10/14/16 Range/Units 21:24 04:34 Troponin I 0.02 0.02 (0-0.03) ng/mL Liver Function 10/14/16 Range/Units 04:34 Total Bilirubin 2.1 H (0.2-1.2) mg/dL AST 55 H (5-34) Units/L ALT 45 (0-55) Units/L Alkaline Phosphatase 77 (38-126) Units/L Albumin 2.9 L (3.5-5.0) g/dL - ABG Interpretation ABG results: ABG ABG pH 7.47 pH Units (7.32-7.45) H 10/14/16 14:25 ABG pCO2 29 mmHg (35-45) L 10/14/16 14:25 ABG pO2 89 mmHg (85-104) 10/14/16 14:25 ABG O2 Saturation 97 % (95-98) 10/14/16 14:25 PT/INR, D-dimer PT 26.6 Seconds (9.4-12.1) H 10/14/16 04:34 - Impressions Impressions Head CT 10/14/16 16:55 IMPRESSION: No acute intracranial abnormality. Diffuse atrophic changes with findings suggesting chronic microvascular ischemia D/ / Gamal Trejo MD / Gamal Trejo MD Interpreting Provider: Gamal Trejo MD Consult Discharge Plan - Plan Referrals: Rafael Ugarte MD [Primary Care Provider] - (SENT WEB REQUEST ON 10-14-16 @ [id number])
[2016-10-15] MEDS: Famotidine 20 MG TABLET PO SCH ×2 (04:56→16:44)
[2016-10-15] MEDS: Amiodarone Premix 360 MG/200 ML BAG IVC SCH ×2 (04:56→16:43)
[2016-10-15 04:59] LABS: Hematocrit 36.4 % (37.5-50.1); Hemoglobin 12.1 g/dL (12.9-16.9); Mean Corpuscular HGB Conc 33.2 g/dL (31.6-35.5); Mean Corpuscular Hemoglobin 28.5 pg (28.0-33.3); Mean Corpuscular Volume 85.8 fL (83.0-100.0); Mean Platelet Volume 12.9 fL (9.4-12.4); Platelet Count 108 K/mcL (140-400); Red Blood Count 4.24 M/mcL (4.19-5.50); Red Cell Distribution Width 14.2 % (11.5-14.5)
[2016-10-15 05:02] LABS: INR 2.5; Prothrombin Time 28.2 Seconds (9.4-12.1)
[2016-10-15 05:18] LABS: Albumin 2.7 g/dL (3.5-5.0); Albumin/Globulin Ratio 0.8 (1.1-2.2); Bilirubin,Total 2.2 mg/dL (0.2-1.2); Calcium 7.9 mg/dL (8.6-10.8); Globulin 3.3 g/dL (2.4-3.5); Potassium 3.7 mEq/L (3.5-4.5)
[2016-10-15 05:58] LABS: Lymphocytes # 1.6 K/mcL (0.6-4.6); Monocytes # 1.1 K/mcL (0.0-1.3); Neutrophils # 6.4 K/mcL (1.6-8.9)
[2016-10-15 05:59] LABS: Anisocytosis 1+ (Not Present); Large Platelets Present (Not Present); Platelet Estimate Slight Decrease (Normal); Polychromasia 1+ (Not Present)
[2016-10-15] MEDS: Multivit/Ca/Min/Fe/FA 1 TAB TABLET PO SCH (07:46)
[2016-10-15] MEDS: Furosemide 20 MG TABLET PO SCH (07:46)
[2016-10-15] MEDS: Finasteride 5 MG TABLET PO SCH (07:46)
[2016-10-15] MEDS: Cholecalciferol (D-3) 1,000 UNIT TABLET PO SCH (07:46)
[2016-10-15] MEDS: Aspirin 81 MG TAB.CHEW PO SCH (07:46)
[2016-10-15] MEDS: VITAMIN E PO SCH (08:02)
[2016-10-15] MEDS: Diltiazem CD (24hr) 180 MG CAPSULE PO SCH (10:07)
[2016-10-15] MEDS: Metoprolol XL (24 HR) Succ 50 MG TAB.ER.24H PO SCH ×2 (10:10→20:41)
--- NOTE | 2016-10-15 10:21 | Cardiology Progress Note ---
Date of Encounter: 10/15/16 Time of Encounter: 10:00 Assessment and Plan (1) Atrial fibrillation with rapid ventricular response Current Visit: Yes Status: Acute Presented with afib with RVR, etiology unclear. Reports URI symptoms x2+ weeks with failed outpatient treatment. Hx of afib/flutter s/p DERRICK/DCCV last summer with early recurrence of afib. Has since been rate controlled on oral BB and CCB. Anticoagulated on Coumadin, INR followed by [facility]. INR subtherapeutic upon admission, now therapeutic. Continue coumadin, pharmacy dosing as inpt. Rate remains poorly controlled, avg OU=083 over the past 12 hours--on IV amiodarone gtt. Will give betablocker now, CCB held due to hypotension. Appears volume overload, d/c IVF and will give IV lasix x1 dose now. Suspect difficulty with rate control until underlying issue has resolved, may require DERRICK guided DCCV; unfortunately unable to complete today d/t respiratory status--conversational dyspnea, orthopnea, and increased O2 requirements (4 lpm) Will continue to follow closely. (2) Valvular heart disease Current Visit: Yes Status: Acute Known severe and moderate MR--has been referred to [facility] for replacement evaluation; medical therapy has been recommended at this time. (3) CAD (coronary artery disease) Current Visit: Yes Status: Chronic Mild, non-obstructive CAD per [facility] in 2016. Qualifiers: Coronary Disease-Associated Artery/Lesion type: [place] artery [place] vs. transplanted heart: [place] heart Associated angina: without angina Qualified Code(s): I25.10 - Atherosclerotic heart disease of [place] coronary artery without angina pectoris Discussion w patient/family: The assessment and plan as outlined above was discussed with the patient and/or family members who expressed understanding and agreement. All questions were answered. Thank you for involving us in the care of your patient. Please call with any questions. The patient will be discussed and reviewed with Dr. Hernández; changes to be made accordingly. Subjective Principal diagnosis: Afib with RVR Interval history: Seen and examined. Continues to have orthopnea and conversational dyspnea. Reports increase in abdominal fullness. at bedside today, with regards to severe --saw surgeon at [facility] last Friday who recommended repeat TTE when afib/rate improved. Objective Vital Signs, Last 4 Hours Temp Pulse Resp BP Pulse Ox 07/11/17 10:11 156 94/82 10/15/16 09:00 151 86/60 10/15/16 08:00 158 112/63 10/15/16 07:51 154 10/15/16 07:33 98.7 F 147 18 93/79 97 10/15/16 07:21 151 93/79 General: Conversant, Other (diaphoretic, conversational dyspnea) Cardiac: Other (irregulary irregular, systolic murmur) Lungs: Normal Breath Sounds Neuro: Alert and responsive Abdomen: Soft Skin: No rashes noted on visualized skin Musculoskeletal: No Chest Wall Tenderness Extremities: Other (mild, BLE edema) Results 10/15/16 03:55 10/15/16 03:55 Lab Results 10/15/16 10/15/16 10/15/16 03:55 03:55 03:55 WBC 9.1 Hgb 12.1 L Hct 36.4 L Plt Count 108 L INR 2.5 Sodium 130 L Potassium 3.7 Chloride 98 Carbon Dioxide 23 BUN 36 H Creatinine 1.62 H Glucose 110 H Calcium 7.9 L Total Bilirubin 2.2 H AST 62 H ALT 51 Alkaline Phosphatase 74 Active Medications Acetaminophen (Tylenol) 650 mg PO Q6HR PRN PRN Reason: Mild Pain (1-3) Stop: 04/14/17 16:03 Aspirin (Aspirin) 81 mg PO DAILY [facility] Stop: 04/14/17 16:01 Last Admin: 10/15/16 07:46 Dose: 81 mg Atorvastatin Calcium (Lipitor) 40 mg PO HS [facility] Stop: 04/14/17 21:01 Last Admin: 10/14/16 22:29 Dose: 40 mg Diltiazem HCl (Cardizem Cd) 360 mg PO DAILY [facility] Stop: 04/15/17 09:01 Last Admin: 10/15/16 10:07 Dose: Not Given Famotidine (Pepcid) 10 mg PO Q12HR [facility] Stop: 04/14/17 18:01 Last Admin: 10/15/16 04:56 Dose: 10 mg Finasteride (Proscar) 5 mg PO DAILY [facility] PRN Reason: Protocol Stop: 04/15/17 09:01 Last Admin: 10/15/16 07:46 Dose: 5 mg Furosemide (Lasix) 20 mg PO DAILY [facility] Stop: 04/15/17 09:01 Last Admin: 10/15/16 07:46 Dose: 20 mg Amiodarone HCl/Dextrose (Amiodarone Drip Premix 360mg/200ml) 360 mg in 200 mls @ 16.667 mls/hr IVC CONT [facility] PRN Reason: 0.5 MG/MIN Stop: 04/14/17 21:16 Last Admin: 10/15/16 04:56 Dose: 0.5 mg/min, 16.667 mls/hr Metoprolol Succinate (Toprol Xl) 75 mg PO BID [facility] Stop: 04/14/17 21:01 Last Admin: 10/15/16 10:10 Dose: 75 mg Morphine Sulfate (Morphine Sulfate) 2 mg IVP Q4HR PRN PRN Reason: Severe Pain (7-10) Stop: 04/14/17 16:03 Multivitamins/Calcium (Thera M Plus) 1 tab PO DAILY [facility] Stop: 04/15/17 09:01 Last Admin: 10/15/16 07:46 Dose: 1 tab Naloxone HCl (Narcan) 0.4 mg IVP Q2MIN PRN PRN Reason: Opioid Reversal Stop: 04/14/17 16:03 Ondansetron HCl (Zofran) 4 mg IVP Q8HR PRN PRN Reason: Nausea And Vomiting Stop: 04/14/17 16:03 Pharmacy Profile Note (Patient Taking Own Medication) 0 each PO DAILY [facility] Stop: 04/15/17 09:01 Last Admin: 10/15/16 08:02 Dose: Not Given Tamsulosin HCl (Flomax) 0.4 mg PO DAILY [facility] PRN Reason: Protocol Stop: 04/15/17 09:01 Last Admin: 10/15/16 07:46 Dose: 0.4 mg Vitamin D (Vitamin D) 2,000 unit PO DAILY [facility] Stop: 04/15/17 09:01 Last Admin: 10/15/16 07:46 Dose: 2,000 unit Warfarin Sodium (Coumadin Perpt) 0 each PO DAILY@1800 PRN PRN Reason: SEE COMMENTS Stop: 04/15/17 18:01 Warfarin Sodium (Coumadin) 5 mg PO MOWEFR@1800 [facility] Stop: 04/15/17 18:01 Last Admin: 10/14/16 17:33 Dose: 5 mg Warfarin Sodium (Coumadin) 10 mg PO SUTUTHSA@1800 [facility] Stop: 04/16/17 18:01 - Imaging and Cardiology Echo: report reviewed Cardiac cath: report reviewed Other Results: 12 hour tele: avg [id number] afib. - EKG Interpretation EKG results cardiology: personally reviewed Consult Discharge Plan - Plan Referrals: Rafael Ugarte MD [Primary Care Provider] - (SENT WEB REQUEST ON 10-14-16 @ [id number])
[2016-10-15] MEDS ORDERED: Furosemide 20 MG/2 ML VIAL IVP ONE (10:23)
--- NOTE | 2016-10-15 17:34 | Internal Med Progress Note ---
Date of Encounter: 10/15/16 Time of Encounter: 08:00 - Assessment and plan (1) Atrial fibrillation with rapid ventricular response Current Visit: Yes Status: Acute Assessment and plan: Patient presented with palpitations and shortness of breath. He was found to have afib with rvr. Appreciate cardiology input. Heart rate not yet adequate. Continue amiodarone drip, oral cardizem and oral metoprolol, heparin drip until inr therapeutic. IV lasix x1. 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 Echocardiogram (08/17/2016). LVEF 50-55%, diastolic function. Severely dilated LA , moderately dilated RA, mild MR. (2) Acute respiratory failure with hypoxemia Current Visit: Yes Status: Acute Assessment and plan: Secondary to A. fib with RVR, and diastolic heart failure exacerbation. Patient does not use oxygen at home. Echocardiogram (08/17/2016). LVEF 50-55%, diastolic function, severely dilated LA, moderately dilated RA, normal RV size and function. Requiring treatment 0.5 L of oxygen since admission. Chest x-ray shows pulmonary vascular congestion. Continue Lasix, fluid restriction, beta asia. (3) Acute diastolic heart failure Current Visit: Yes Status: Acute Assessment and plan: plan as above (4) Mitral regurgitation Current Visit: Yes Status: Chronic Assessment and plan: Mild to moderate MR and [id number] AR. Qualifiers: Cardiac valve disease etiology: nonrheumatic Qualified Code(s): I34.0 - Nonrheumatic mitral (valve) insufficiency (5) CAD (coronary artery disease) Current Visit: Yes Status: Chronic Assessment and plan: stable. continue ASA, statin. Qualifiers: Coronary Disease-Associated Artery/Lesion type: [place] artery [place] vs. transplanted heart: [place] heart Associated angina: without angina Qualified Code(s): I25.10 - Atherosclerotic heart disease of [place] coronary artery without angina pectoris (6) Severe aortic stenosis by prior echocardiogram Current Visit: Yes Status: Acute - Subjective Interval history: patient reports diaphoresis. no palpitations. no chest pain. no lightheadedness. no headache. - Constitutional Vitals: Temp Pulse Resp BP Pulse Ox 98.1 F 151 20 98/84 97 10/15/16 15:45 10/15/16 16:47 10/15/16 11:52 10/15/16 16:00 10/15/16 15:45 General appearance: Present: A&O X 3, pleasant, no acute distress, answers questions appropriately - Neck Neck exam general surgery: Present: supple, trachea midline. Absent: lymphadenopathy - Respiratory Respiratory exam: Present: rales (at bases.). Absent: wheezes - Cardiovascular Cardiovascular exam: Present: irregular rhythm, tachycardia - GI/Abdominal GI/Abdominal exam: Present: normal bowel sounds, soft. Absent: distended, tenderness - Extremities Exam Extremities exam: Present: pedal edema (ankle) - Back Exam Back exam: Absent: CVA tenderness (L), CVA tenderness (R) - Neurological Exam Neurological exam: Present: alert, oriented X3, no focal deficits, strengths equal and symetr throughout. Absent: facial droop, speech deficit - Skin Skin exam: Absent: rash Internal Medicine: Result - Labs CBC & Chem 7: 10/15/16 03:55 10/15/16 03:55 Labs: Short CBC 10/15/16 Range/Units 03:55 WBC 9.1 (4.3-11.1) K/mcL Hgb 12.1 L (12.9-16.9) g/dL Hct 36.4 L (37.5-50.1) % Plt Count 108 L (140-400) K/mcL Neutrophils # 6.4 (1.6-8.9) K/mcL BMP 10/15/16 03:55 Sodium 130 L Potassium 3.7 Chloride 98 Carbon Dioxide 23 BUN 36 H Creatinine 1.62 H Glucose 110 H Calcium 7.9 L Liver Function 10/15/16 Range/Units 03:55 Total Bilirubin 2.2 H (0.2-1.2) mg/dL AST 62 H (5-34) Units/L ALT 51 (0-55) Units/L Alkaline Phosphatase 74 (38-126) Units/L Albumin 2.7 L (3.5-5.0) g/dL - ABG Interpretation ABG results: ABG ABG pH 7.47 pH Units (7.32-7.45) H 10/14/16 14:25 ABG pCO2 29 mmHg (35-45) L 10/14/16 14:25 ABG pO2 89 mmHg (85-104) 10/14/16 14:25 ABG O2 Saturation 97 % (95-98) 10/14/16 14:25 PT/INR, D-dimer PT 28.2 Seconds (9.4-12.1) H 10/15/16 03:55 - Impressions Impressions Head CT 10/14/16 16:55 IMPRESSION: No acute intracranial abnormality. Diffuse atrophic changes with findings suggesting chronic microvascular ischemia D/ / Gamal Trejo MD / Gamal Trejo MD Interpreting Provider: Gamal Trejo MD Chest X-Ray 10/15/16 15:10 IMPRESSION: Stable cardiomegaly with no acute finding in the chest. D/ / Reji Tesfaye MD / Reji Tesfaye MD Interpreting Provider: Reji Tesfaye MD Consult Discharge Plan - Plan Referrals: Rafael Ugarte MD [Primary Care Provider] - (SENT WEB REQUEST ON 10-14-16 @ [id number])
[2016-10-15] MEDS ORDERED: *HR* Warfarin 5 MG TABLET PO SCH (18:00)
[2016-10-16 04:52] LABS: Prothrombin Time 33.6 Seconds (9.4-12.1)
[2016-10-16 04:57] LABS: Albumin 2.7 g/dL (3.5-5.0); Albumin/Globulin Ratio 0.8 (1.1-2.2); Bilirubin,Total 1.9 mg/dL (0.2-1.2); Calcium 8.1 mg/dL (8.6-10.8); Globulin 3.5 g/dL (2.4-3.5); Magnesium 2.3 mg/dL (1.6-2.6); Total Protein 6.2 g/dL (6.0-8.3)
[2016-10-16 04:59] LABS: Basophils # 0.1 K/mcL (0.0-0.2); Basophils % 0.5 %; Eosinophils % 0.4 %; Hematocrit 38.4 % (37.5-50.1); Hemoglobin 12.6 g/dL (12.9-16.9); Immature Granulocytes % 0.6 % (0-4); Lymphocytes # 2.9 K/mcL (0.6-4.6); Lymphocytes % 27.8 %; Mean Corpuscular HGB Conc 32.8 g/dL (31.6-35.5); Mean Corpuscular Hemoglobin 28.4 pg (28.0-33.3); Mean Corpuscular Volume 86.5 fL (83.0-100.0); Mean Platelet Volume 12.8 fL (9.4-12.4); Monocytes # 0.7 K/mcL (0.0-1.3); Neutrophils # 6.6 K/mcL (1.6-8.9); Platelet Count 127 K/mcL (140-400); Red Blood Count 4.44 M/mcL (4.19-5.50); Red Cell Distribution Width 14.4 % (11.5-14.5); Segmented Neutrophils % 63.7 %
[2016-10-16] MEDS: Amiodarone Premix 360 MG/200 ML BAG IVC SCH ×2 (05:14→16:08)
[2016-10-16 05:45] LABS: Platelet Estimate Slight Decrease (Normal); Reactive Lymphocytes Present (Not Present)
[2016-10-16] MEDS: Famotidine 20 MG TABLET PO SCH ×2 (06:27→16:49)
[2016-10-16] MEDS ORDERED: Furosemide 40 MG/4 ML VIAL IVP ONE ×2 (08:21→17:00)
[2016-10-16] MEDS: Aspirin 81 MG TAB.CHEW PO SCH (09:03)
[2016-10-16] MEDS: Diltiazem CD (24hr) 180 MG CAPSULE PO SCH (09:03)
[2016-10-16] MEDS: Multivit/Ca/Min/Fe/FA 1 TAB TABLET PO SCH (09:04)
[2016-10-16] MEDS: Finasteride 5 MG TABLET PO SCH (09:04)
[2016-10-16] MEDS: Metoprolol XL (24 HR) Succ 50 MG TAB.ER.24H PO SCH ×2 (09:04→20:12)
[2016-10-16] MEDS: Cholecalciferol (D-3) 1,000 UNIT TABLET PO SCH (09:04)
--- NOTE | 2016-10-16 11:17 | Cardiology Progress Note ---
Date of Encounter: 10/16/16 Time of Encounter: 11:00 Assessment and Plan (1) Atrial fibrillation with rapid ventricular response Current Visit: Yes Status: Acute Presented with afib with RVR, etiology unclear. Reports URI symptoms x2+ weeks with failed outpatient treatment. Hx of afib/flutter s/p DERRICK/DCCV last summer with early recurrence of afib. Has since been rate controlled on oral BB and CCB. Anticoagulated on Coumadin, INR followed by [facility]. INR subtherapeutic upon admission, now therapeutic. Continue coumadin, pharmacy dosing as inpt. Rate remains poorly controlled, avg JD=068 over the past 12 hours--on IV amiodarone gtt. On betablocker and CCB. Appears volume overload upon exam despite extra lasix on 10/15/16; cumulative positive balance, >5L. Significant LE edema and expiratory wheezes upon exam. SCr worsening (baseline 1.3-1.4), will given additional dose of lasix now, then recheck BMP at 2PM. Strict I&O's, daily weights, Na/Fluid restriction diet. Suspect difficulty with rate control until underlying issue has resolved, may require DERRICK guided DCCV; unfortunately unable to complete today d/t respiratory status--conversational dyspnea, orthopnea, and increased O2 requirements (4 lpm) NPO after MN for possible DERRICK guided DCCV in AM. Will continue to follow closely. (2) Valvular heart disease Current Visit: Yes Status: Acute Known severe and moderate MR--has been referred to [facility] for replacement evaluation; medical therapy has been recommended at this time. Saw CT surgery at [facility] on 10/11--was told he needed to have improved rate control of afib and plan for repeat TTE in a few months per report. (3) CAD (coronary artery disease) Current Visit: Yes Status: Chronic Mild, non-obstructive CAD per [facility] in 2016. Qualifiers: Coronary Disease-Associated Artery/Lesion type: [place] artery [place] vs. transplanted heart: [place] heart Associated angina: without angina Qualified Code(s): I25.10 - Atherosclerotic heart disease of [place] coronary artery without angina pectoris Discussion w patient/family: The assessment and plan as outlined above was discussed with the patient and/or family members who expressed understanding and agreement. All questions were answered. Thank you for involving us in the care of your patient. Please call with any questions. The patient will be discussed and reviewed with Dr. Hernández; changes to be made accordingly. Subjective Principal diagnosis: Afib with RVR Interval history: Seen and examined. Continues to have orthopnea and conversational dyspnea. Reports increase in abdominal fullness, facial, and LE edema. Objective Vital Signs, Last 4 Hours Temp Pulse Resp BP Pulse Ox 10/16/16 11:08 98.1 F 149 20 108/81 90 10/16/16 08:22 158 18 94/79 94 General: Conversant, Other (conversational dyspnea) HEENT: Atraumatic, Normocephaly Cardiac: Other (irregularly irregular, systolic murmur) Lungs: Other (Expiratory wheezes throughout) Neuro: Alert and responsive, No focal deficits noted Abdomen: Soft Skin: No rashes noted on visualized skin Musculoskeletal: No Chest Wall Tenderness Extremities: Other (+1-2 bilateral LE edema to mid [place]) Results 10/16/16 04:20 10/16/16 04:20 Lab Results 10/16/16 10/16/16 10/16/16 04:20 04:20 04:20 WBC 10.3 Hgb 12.6 L Hct 38.4 Plt Count 127 L INR 3.0 Sodium 131 L Potassium 4.0 Chloride 99 Carbon Dioxide 22 BUN 42 H Creatinine 1.77 H Glucose 118 H Calcium 8.1 L Magnesium 2.3 Total Bilirubin 1.9 H AST 92 H ALT 78 H Alkaline Phosphatase 86 Intake & Output 10/13/16 10/14/16 10/15/16 10/16/16 23:59 23:59 23:59 23:59 Intake Total 2045.0 / 2045.0 2376 / 2376 2343 / 2343 700 / 700 Output Total 350 / 350 525 / 525 1210 / 1210 325 / 325 Balance 1695.0 / 1695.0 1851 / 1851 1133 / 1133 375 / 375 Weight 108.862 kg 109.8 kg 114.3 kg Impressions Chest X-Ray 10/15/16 15:10 IMPRESSION: Stable cardiomegaly with no acute finding in the chest. D/ / Reji Tesfaye MD / Reji Tesfaye MD Interpreting Provider: Reji Tesfaye MD - Imaging and Cardiology Chest Xray: report reviewed Echo: report reviewed Cardiac cath: report reviewed Other Results: 12 hour tele: avg BN=595 afib. - EKG Interpretation EKG results cardiology: personally reviewed Consult Discharge Plan - Plan Referrals: Rafael Ugarte MD [Primary Care Provider] - (SENT WEB REQUEST ON 10-14-16 @ [id number])
[2016-10-16 14:06] LABS: Potassium 3.6 mEq/L (3.5-4.5)
[2016-10-16] MEDS: 0.9 % Sodium Chloride 1,000 ML IVC SCH ×2 (15:35→15:36)
[2016-10-16] MEDS: Levalbuterol Neb 1.25 MG/3 ML IH SCH ×2 (15:47→22:24)
[2016-10-16] MEDS ORDERED: *HR* Warfarin 2.5 MG TABLET PO ONE (18:00)
--- NOTE | 2016-10-16 20:02 | Internal Med Progress Note ---
Date of Encounter: 10/16/16 Time of Encounter: 07:45 - Assessment and plan (1) Atrial fibrillation with rapid ventricular response Current Visit: Yes Status: Acute Assessment and plan: Patient presented with palpitations and shortness of breath. He was found to have afib with rvr. Appreciate cardiology input. Heart rate not yet adequate. Plan for DERRICK/DCCV tomorrow. Continue amiodarone drip, oral cardizem and oral metoprolol, heparin drip until inr therapeutic. IV lasix x1. 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 Echocardiogram (08/17/2016). LVEF 50-55%, diastolic function. Severely dilated LA , moderately dilated RA, mild MR. (2) Acute respiratory failure with hypoxemia Current Visit: Yes Status: Acute Assessment and plan: Secondary to A. fib with RVR, diastolic heart failure exacerbation and suspected COPD. Patient does not use oxygen at home. Echocardiogram (08/17/2016) . LVEF 50-55%, diastolic function, severely dilated LA, moderately dilated RA, normal RV size and function. Chest x-ray shows pulmonary vascular congestion. He received aggressive diuresis with UOP 1210 ml but this was stopped due to acute kidney injury. Chest x-ray 10/15 showed no acute process. Requiring 2.5 L of oxygen since admission. Continue nebs, fluid restriction, beta asia, add mucinex. (3) Acute worsening of stage 3 chronic kidney disease Current Visit: Yes Status: Acute Assessment and plan: Patient with history of chronic kidney disease stage III for the past year. BUN and creatinine trending up. Check renal ultrasound, urine electrolytes and BMP this afternoon. Hold Lasix. (4) Acute diastolic heart failure Current Visit: Yes Status: Acute Assessment and plan: plan as above (5) Mitral regurgitation Current Visit: Yes Status: Chronic Assessment and plan: Mild to moderate MR and [id number] AR. Qualifiers: Cardiac valve disease etiology: nonrheumatic Qualified Code(s): I34.0 - Nonrheumatic mitral (valve) insufficiency (6) CAD (coronary artery disease) Current Visit: Yes Status: Chronic Assessment and plan: stable. continue ASA, statin. Qualifiers: Coronary Disease-Associated Artery/Lesion type: [place] artery [place] vs. transplanted heart: [place] heart Associated angina: without angina Qualified Code(s): I25.10 - Atherosclerotic heart disease of [place] coronary artery without angina pectoris (7) Severe aortic stenosis by prior echocardiogram Current Visit: Yes Status: Acute - Subjective Interval history: Patient reports mild shortness of breath on exertion and yellowish productive cough. no palpitations. no chest pain. no lightheadedness. no headache. - Constitutional Vitals: Temp Pulse Resp BP Pulse Ox 98.7 F 141 22 112/69 95 10/16/16 15:11 10/16/16 17:02 10/16/16 17:02 10/16/16 17:02 10/16/16 17:02 General appearance: Present: cooperative, A&O X 3, pleasant, no acute distress, answers questions appropriately - Eye Eye exam: Present: PERRL, sclera anicteric - Neck Neck exam general surgery: Present: supple, trachea midline. Absent: lymphadenopathy - Respiratory Respiratory exam: Present: rhonchi - Cardiovascular Cardiovascular exam: Present: irregular rhythm, tachycardia - GI/Abdominal GI/Abdominal exam: Present: normal bowel sounds, soft. Absent: distended, tenderness - Extremities Exam Extremities exam: Present: pedal edema (2+ LE edema up to the knees) - Neurological Exam Neurological exam: Present: alert, oriented X3. Absent: facial droop, speech deficit - Skin Skin exam: Absent: rash Internal Medicine: Result - Labs CBC & Chem 7: 10/16/16 04:20 10/16/16 13:29 Labs: Short CBC 10/16/16 Range/Units 04:20 WBC 10.3 (4.3-11.1) K/mcL Hgb 12.6 L (12.9-16.9) g/dL Hct 38.4 (37.5-50.1) % Plt Count 127 L (140-400) K/mcL Neutrophils # 6.6 (1.6-8.9) K/mcL BMP 10/16/16 10/16/16 04:20 13:29 Sodium 131 L 129 L Potassium 4.0 3.6 Chloride 99 97 L Carbon Dioxide 22 25 BUN 42 H 43 H Creatinine 1.77 H 1.71 H Glucose 118 H 136 H Calcium 8.1 L 8.0 L Liver Function 10/16/16 Range/Units 04:20 Total Bilirubin 1.9 H (0.2-1.2) mg/dL AST 92 H (5-34) Units/L ALT 78 H (0-55) Units/L Alkaline Phosphatase 86 (38-126) Units/L Albumin 2.7 L (3.5-5.0) g/dL - ABG Interpretation ABG results: ABG ABG pH 7.47 pH Units (7.32-7.45) H 10/14/16 14:25 ABG pCO2 29 mmHg (35-45) L 10/14/16 14:25 ABG pO2 89 mmHg (85-104) 10/14/16 14:25 ABG O2 Saturation 97 % (95-98) 10/14/16 14:25 PT/INR, D-dimer PT 33.6 Seconds (9.4-12.1) H 10/16/16 04:20 - Impressions Impressions Retroperitoneum Ultrasound 10/16/16 18:00 IMPRESSION: Unremarkable ultrasound of the kidneys. D/ / Mark Garcia MD / Mark Garcia MD Interpreting Provider: Mark Garcia MD Consult Discharge Plan - Plan Referrals: Rafael Ugarte MD [Primary Care Provider] - (SENT WEB REQUEST ON 10-14-16 @ [id number])
[2016-10-17 01:31] LABS: Basophils % 0.4 %; Eosinophils # 0.1 K/mcL (0.0-0.6); Eosinophils % 0.8 %; Hematocrit 37.3 % (37.5-50.1); Hemoglobin 12.6 g/dL (12.9-16.9); Immature Granulocytes % 0.8 % (0-4); Lymphocytes % 21.4 %; Mean Corpuscular HGB Conc 33.8 g/dL (31.6-35.5); Mean Corpuscular Hemoglobin 28.8 pg (28.0-33.3); Mean Corpuscular Volume 85.2 fL (83.0-100.0); Mean Platelet Volume 11.9 fL (9.4-12.4); Monocytes # 0.9 K/mcL (0.0-1.3); Monocytes % 8.2 %; Neutrophils # 7.2 K/mcL (1.6-8.9); Platelet Count 135 K/mcL (140-400); Red Blood Count 4.38 M/mcL (4.19-5.50); Red Cell Distribution Width 14.4 % (11.5-14.5); Segmented Neutrophils % 68.4 %
[2016-10-17 01:32] LABS: Lymphocytes # 2.3 K/mcL (0.6-4.6)
[2016-10-17 01:37] LABS: Prothrombin Time 45.5 Seconds (9.4-12.1)
[2016-10-17 01:43] LABS: Albumin 2.7 g/dL (3.5-5.0); Albumin/Globulin Ratio 0.8 (1.1-2.2); Bilirubin,Total 1.8 mg/dL (0.2-1.2); Calcium 7.9 mg/dL (8.6-10.8); Globulin 3.4 g/dL (2.4-3.5); Potassium 3.7 mEq/L (3.5-4.5); Total Protein 6.1 g/dL (6.0-8.3)
[2016-10-17 01:55] LABS: Platelet Estimate Slight Decrease (Normal); Reactive Lymphocytes Present (Not Present)
[2016-10-17] MEDS: Levalbuterol Neb 1.25 MG/3 ML IH SCH ×4 (04:44→22:18)
[2016-10-17] MEDS: Amiodarone Premix 360 MG/200 ML BAG IVC SCH ×2 (05:00→17:00)
[2016-10-17] MEDS: Famotidine 20 MG TABLET PO SCH ×2 (06:01→17:19)
[2016-10-17] MEDS: Multivit/Ca/Min/Fe/FA 1 TAB TABLET PO SCH (08:06)
[2016-10-17] MEDS: Diltiazem CD (24hr) 180 MG CAPSULE PO SCH (08:06)
[2016-10-17] MEDS: Aspirin 81 MG TAB.CHEW PO SCH (08:07)
[2016-10-17] MEDS: Cholecalciferol (D-3) 1,000 UNIT TABLET PO SCH (08:07)
[2016-10-17] MEDS: Finasteride 5 MG TABLET PO SCH (08:07)
[2016-10-17] MEDS: Metoprolol XL (24 HR) Succ 50 MG TAB.ER.24H PO SCH ×2 (08:08→20:07)
--- NOTE | 2016-10-17 09:31 | Cardiology Progress Note ---
Date of Encounter: 10/17/16 Time of Encounter: 09:30 Assessment and Plan (1) Atrial fibrillation with rapid ventricular response Current Visit: Yes Status: Acute Presented with afib with RVR, etiology unclear. Reports URI symptoms x2+ weeks with failed outpatient treatment. Hx of afib/flutter s/p DERRICK/DCCV x2 last summer with early recurrence of afib. Has since been rate controlled on oral BB and CCB. Anticoagulated on Coumadin, INR followed by [facility]. INR subtherapeutic upon admission, now supra-therapeutic. Continue coumadin, pharmacy dosing as inpt. Continues to be difficult to rate control. AVg HR was 136 bpm over 12 hours. On amiodarone gtt, toprol XL 75 mg BID, and cardizem 360 mg daily. Planning for DCCV/DERRICK today. He became hypotensive through the night. Manual b/ p 85/60 this morning. He denies symptoms. Discussed with Dr. Hernández. We will load with IV digoxin. If no improvement in HR this afternoon he will proceed with DERRICK/DCCV. (2) CAD (coronary artery disease) Current Visit: Yes Status: Chronic Mild, non-obstructive CAD per [facility] in 2016. Qualifiers: Coronary Disease-Associated Artery/Lesion type: [place] artery [place] vs. transplanted heart: [place] heart Associated angina: without angina Qualified Code(s): I25.10 - Atherosclerotic heart disease of [place] coronary artery without angina pectoris (3) Valvular heart disease Current Visit: Yes Status: Acute Known severe and moderate MR--has been referred to [facility] for replacement evaluation; medical therapy has been recommended at this time. Saw CT surgery at [facility] on 10/11--was told he needed to have improved rate control of afib and plan for repeat TTE in a few months per report. Discussion w patient/family: The assessment and plan as outlined above was discussed with the patient and/or family members who expressed understanding and agreement. All questions were answered. Thank you for involving us in the care of your patient. Please call with any questions. Subjective Principal diagnosis: Afib with RVR Interval history: Pt denies SOB or chest pain. Resting comfortably in bed on 2L NC without distress. Objective Vital Signs, Last 4 Hours Temp Pulse Resp BP Pulse Ox 10/17/16 08:12 135 10/17/16 06:35 97.6 F 132 18 82/61 96 General: Conversant, No Apparent Distress HEENT: Atraumatic, Normocephaly, Mucus Membranes Moist Neck: No JVD, Normal carotid pulses Cardiac: Other (Irregularly irregular) Lungs: Other (Faint rales in posterior bases) Neuro: Alert and responsive, No focal deficits noted Abdomen: Soft, Non-Tender Skin: No rashes noted on visualized skin Musculoskeletal: No Chest Wall Tenderness Extremities: No Clubbing, No Cyanosis, Normal Pulses, Other (1+ edema up to bilateral below the knee. ) Results 10/17/16 00:58 10/17/16 00:58 Lab Results 10/16/16 10/17/16 10/17/16 13:29 00:58 00:58 WBC 10.5 Hgb 12.6 L Hct 37.3 L Plt Count 135 L INR 4.0 Sodium 129 L Potassium 3.6 Chloride 97 L Carbon Dioxide 25 BUN 43 H Creatinine 1.71 H Glucose 136 H Calcium 8.0 L Total Bilirubin AST ALT Alkaline Phosphatase 10/17/16 00:58 WBC Hgb Hct Plt Count INR Sodium 131 L Potassium 3.7 Chloride 97 L Carbon Dioxide 24 BUN 45 H Creatinine 1.84 H Glucose 116 H Calcium 7.9 L Total Bilirubin 1.8 H AST 104 H ALT 94 H Alkaline Phosphatase 92 - EKG Interpretation EKG results cardiology: other (Telemetry review shows HR in the 130-140 currently. AVg Hr was 136 bpm.) Consult Discharge Plan - Plan Referrals: Rafael Ugarte MD [Primary Care Provider] - (SENT WEB REQUEST ON 10-14-16 @ [id number])
[2016-10-17] MEDS ORDERED: Pantoprazole 40 MG VIAL IVP ONE (10:17)
[2016-10-17] MEDS ORDERED: Mag Hydrox/Al Hydrox/Simeth 30 ML UDC PO ONE (10:17)
[2016-10-17] MEDS: *HR* Digoxin 0.5 MG/2 ML AMPUL IVP SCH ×2 (10:28→17:19)
[2016-10-17] MEDS ORDERED: Lidocaine Viscous Oral Soln 15 ML SOLUTION MM ONE (13:21)
[2016-10-17] MEDS ORDERED: *HR* Midazolam HCl 5 MG/5 ML VIAL IVP ONE ×2 (13:25→14:55)
[2016-10-17] MEDS ORDERED: *HR* Phenylephrine 10 MG/ML VIAL ONE (13:25)
[2016-10-17] MEDS ORDERED: *HR* FentaNYL (PF) 250 MCG/5 ML VIAL ONE (13:25)
[2016-10-17] MEDS ORDERED: 0.9 % Sodium Chloride 1,000 ML ONE (13:33)
--- NOTE | 2016-10-17 14:25 | Pre-Sedation Evaluation ---
Pre-sedation evaluation - Pre-sedation checklist Date of procedure: 10/17/16 Procedure: DERRICK/cardioversion Recent Vitals: Last Vital Signs Temp 97.5 F L 10/17/16 10:30 Pulse 144 10/17/16 10:59 Resp 20 10/17/16 10:40 BP 96/68 10/17/16 10:30 Pulse Ox 99 10/17/16 10:40 H&P (including ROS) documented in medical record: Yes Previous reaction to sedatives/anesthetics: No Dietary Status: NPO after Midnight Dentition: No loose teeth or bridges ASA Classification *see protocol: CLASS II-Mild systemic disease Plan of Care: Pt appropriate candidate for procedure/moderate/conscious sedation , Risks/benefits of procedure/sedation discussed w/ patient/family
--- NOTE | 2016-10-17 14:48 | Electrophysiology Consult Note ---
Date of Encounter: 10/17/16 Time of Encounter: 14:47 Assessment and Plan (1) Atrial fibrillation with rapid ventricular response Current Visit: Yes Status: Acute Per EP: -Presented with afib with RVR, etiology unclear. Reports URI symptoms x2+ weeks with failed outpatient treatment. -Hx of afib/flutter s/p DERRICK/DCCV x2 last summer with early recurrence of afib. -Has since been rate controlled on oral BB and CCB. -Anticoagulated on Coumadin, INR followed by [facility]. -INR subtherapeutic upon admission, now supra-therapeutic. Continue coumadin, pharmacy dosing as inpt. -Continues to be difficult to rate control. AVg HR was 136 bpm over 12 hours. On amiodarone gtt, toprol XL 75 mg BID, and cardizem 360 mg daily. -Status post unsuccessful cardioversion today. Per discussion with , patient went into SR for less than 1 minute and was then back in a.fib RVR. -Discussed with Dr.John Nichols, commercial hvac service technician, who states to put patient on amiodarone 400mg BID in addition to amiodarone drip. Dr.John Nichols states that he should remain on po amio and IV amio for a few 3 days. -If unable to rate control, consider repeat cardioversion after 3 days with increased amiodarone po and IV. -EP will sign off and patient will be followed by inpatient cardiology. Discussion w patient/family: The assessment and plan as outlined above was discussed with the patient and/or family members who expressed understanding and agreement. All questions were answered. Thank you for involving us in the care of your patient. Please call with any questions. Discussed and reviewed with Dr.John Nichols. History of Present Illness Consult date: 10/17/16 Requesting physician: Miah Murphy Consult reason: a.fib RVR Chief complaint: shortness of breath History of present illness: Mr. Delaney is a 75 year old male with PMHx significant for Afib (coumadin) , valvular heart disease, HTN, non-obstructive CAD, and arthritis who presented to the ED with shortness of breath. Cardiology has been following patient. Patient underwent unsuccessful cardioversion today and EP has been consulted. Per reviewe of cardiology records, patient has been difficult to rate control. Recent CV testing: TTE 08/17/16: LVEF 50-55%, mild-moderate MR, mild-moderate AR, normal right ventricular size and function, severely dilated left atrium, moderately dilated right atrium,moderate-severely calcified aortic valve with restricted leaflet excursion appears trileaflet, severe aortic stenosis. Peak velocity 4.05 m/sec, mean gradient 37 mmHg,aortic valve area 0.95 cm2, mild-moderate aortic regurgitation, mild- moderate mitral regurgitation, mild tricuspid regurgitation, mild pulmonary hypertension. Estimated RVSP = 41 mmHg, All wall segments showed normal motion. Past Med Surg Social Fam HX - Past Medical History Attestation: Yes The following information was validated with the patient. Source: patient, old records reviewed, obtained from family Medical history: arthritis, atrial fibrillation, coronary artery disease (non- obstructive), hypertension, valvular heart disease Psychiatric history: no psych history - Past Surgical History Surgical History: hip replacement - Social History Smoking Status: Never smoker Smokeless Tobacco Status: No Alcohol use: none Drug use: none - Family History Mother Living Status: Age at : 27 Cause of : "WHIMSY" DIPTHERIA Hx Family Cancer: Yes Father Living Status: Age at : 71 Cause of : SCLERODERMA Hx Family Cardiac Disorders: Yes Hx Family Respiratory Disorders: No Hx Family Cancer: Yes (SON OF PRIMARY LIVER CANCER AGE 50) Hx Family GI Disorders: No Hx Family Genitourinary Disorders: No Hx Family Endocrine Disorder: No Hx Family Musculoskeletal Disorders: No Hx Family Neuromuscular Disorders: No Hx Family Neurologic Disorders: No Hx Family HEENT Disorders: No Hx Family Autoimmune Disorders: Yes (FATHER OF SCLERODERMA) Hx Family Reproductive Disorders: No Hx Family Psychosocial Disorders: No Medications and Allergies Aspirin 81 mg PO DAILY 09/29/15 [History] Cholecalciferol (D-3) [Vitamin D] 2,000 unit PO DAILY 09/29/15 [History] Finasteride [Proscar] 5 mg PO DAILY 09/29/15 [History] Multivitamin [Multi-Day Vitamins] 1 each PO DAILY 09/29/15 [History] Tamsulosin [Flomax] 0.4 mg PO DAILY 09/29/15 [History] Vitamin E 100 unit PO DAILY 09/29/15 [History] Diltiazem CD (24hr) [Cardizem CD] 360 mg PO DAILY #30 cap.er.24h 10/03/15 [Rx] Metoprolol XL (24 HR) Succ [Toprol Xl] 75 mg PO BID #60 tab.er.24h 10/03/15 [Rx] Atorvastatin [Lipitor] 40 mg PO HS 10/13/16 [History] Cefdinir [Omnicef] 300 mg PO BID 10/13/16 [History] Furosemide [Lasix] 20 mg PO DAILY 10/13/16 [History] Warfarin [Coumadin] 10 mg PO SUMOWEFRSA@1800 10/13/16 [History] Warfarin [Coumadin] 5 mg PO TUTH@1800 10/16/16 [History] Allergies No Known Allergies Allergy (Verified 10/13/16 13:07) All Systems Review: A 10-system review of systems was performed and is negative for pertinent findings except as documented above in the HPI. - Cardiovascular Cardiovascular: as per HPI, dyspnea on exertion, rapid heart rate Physical Examination Vital Signs, Last 4 Hours Pulse 10/17/16 10:59 144 Vital Signs Temperature 97.8 F 10/13/16 09:55 Pulse Rate 185 10/13/16 09:55 Respiratory Rate 18 10/13/16 09:55 Blood Pressure 102/69 10/13/16 09:55 O2 Sat by Pulse Oximetry 95 10/13/16 09:55 Temperature 97.5 F L 10/17/16 10:30 Pulse Rate 135 10/17/16 14:51 Respiratory Rate 20 10/17/16 10:40 Blood Pressure 96/68 10/17/16 10:30 O2 Sat by Pulse Oximetry 99 10/17/16 10:40 Oxygen Delivery Oxygen Delivery Nasal Cannula General: Conversant, No Apparent Distress HEENT: Atraumatic, Normocephaly, Mucus Membranes Moist Neck: No JVD, Normal carotid pulses Cardiac: Other (Irregularly, irregular. Tachycardic. ) Lungs: Normal Breath Sounds, No Wheeze, Rales, Rhonchi Neuro: Alert and responsive, No focal deficits noted Abdomen: Soft, Non-Tender Skin: No rashes noted on visualized skin Musculoskeletal: No Chest Wall Tenderness Extremities: No Clubbing, No Cyanosis, Normal Pulses, Other (2+ bilateral lower extremity pitting edema. ) Results 10/17/16 00:58 10/17/16 14:55 Lab Results Impressions Retroperitoneum Ultrasound 10/16/16 18:00 IMPRESSION: Unremarkable ultrasound of the kidneys. D/ / Mark Garcia MD / Mark Garcia MD Interpreting Provider: Mark Garcia MD Active Medications Acetaminophen (Tylenol) 650 mg PO Q6HR PRN PRN Reason: Mild Pain (1-3) Stop: 04/14/17 16:03 Amiodarone HCl (Cordarone) 400 mg PO BID [facility] Stop: 04/18/17 21:01 Aspirin (Aspirin) 81 mg PO DAILY [facility] Stop: 04/14/17 16:01 Last Admin: 10/17/16 08:07 Dose: 81 mg Atorvastatin Calcium (Lipitor) 40 mg PO HS [facility] Stop: 04/14/17 21:01 Last Admin: 10/16/16 20:12 Dose: 40 mg Digoxin (Lanoxin) 0.25 mg IVP Q6HR [facility] Stop: 10/18/16 00:01 Last Admin: 10/17/16 10:28 Dose: 0.25 mg Diltiazem HCl (Cardizem Cd) 360 mg PO DAILY [facility] Stop: 04/15/17 09:01 Last Admin: 10/17/16 08:06 Dose: 360 mg Famotidine (Pepcid) 10 mg PO Q12HR [facility] Stop: 04/14/17 18:01 Last Admin: 10/17/16 06:01 Dose: Not Given Finasteride (Proscar) 5 mg PO DAILY [facility] PRN Reason: Protocol Stop: 04/15/17 09:01 Last Admin: 10/17/16 08:07 Dose: 5 mg Guaifenesin (Mucinex) 1,200 mg PO BID [facility] Stop: 04/17/17 09:01 Last Admin: 10/17/16 08:06 Dose: 1,200 mg Amiodarone HCl/Dextrose (Amiodarone Drip Premix 360mg/200ml) 360 mg in 200 mls @ 16.667 mls/hr IVC CONT RON PRN Reason: 0.5 MG/MIN Stop: 04/14/17 21:16 Last Admin: 10/17/16 05:00 Dose: 0.5 mg/min, 16.667 mls/hr Levalbuterol HCl (Xopenex) 1.25 mg IH [id number] [facility] Stop: 04/17/17 16:01 Last Admin: 10/17/16 10:33 Dose: 1.25 mg Metoprolol Succinate (Toprol Xl) 75 mg PO BID [facility] Stop: 04/14/17 21:01 Last Admin: 10/17/16 08:08 Dose: Not Given Multivitamins/Calcium (Thera M Plus) 1 tab PO DAILY [facility] Stop: 04/15/17 09:01 Last Admin: 10/17/16 08:06 Dose: 1 tab Naloxone HCl (Narcan) 0.4 mg IVP Q2MIN PRN PRN Reason: Opioid Reversal Stop: 04/14/17 16:03 Ondansetron HCl (Zofran) 4 mg IVP Q8HR PRN PRN Reason: Nausea And Vomiting Stop: 04/14/17 16:03 Tamsulosin HCl (Flomax) 0.4 mg PO DAILY RON PRN Reason: Protocol Stop: 04/15/17 09:01 Last Admin: 10/17/16 08:07 Dose: 0.4 mg Vitamin D (Vitamin D) 2,000 unit PO DAILY [facility] Stop: 04/15/17 09:01 Last Admin: 10/17/16 08:07 Dose: 2,000 unit Warfarin Sodium (Coumadin Perpt) 0 each PO DAILY@1800 PRN PRN Reason: SEE COMMENTS Stop: 04/15/17 18:01 Laboratory Tests 10/13/16 10/16/16 10/17/16 10:30 04:20 00:58 Hgb 12.6 L Plt Count 135 L Potassium Creatinine Magnesium 2.3 TSH 3.524 10/17/16 00:58 Hgb Plt Count Potassium 3.7 Creatinine 1.84 H Magnesium TSH - Imaging and Cardiology Chest Xray: report reviewed Echo: report reviewed - EKG Interpretation EKG results cardiology: personally reviewed (ECG reviewed with atrial fibrillation with RVR, HR 154.), other (Telemetry reviewed with average HR previous 12 hours noted to be 136, atrial fibrillation. PVCs noted.) Consult Discharge Plan - Plan Referrals: Rafael Ugarte MD [Primary Care Provider] - (SENT WEB REQUEST ON 10-14-16 @ [id number])
[2016-10-17] MEDS ORDERED: *HR* FentaNYL (PF) 100 MCG/2 ML VIAL IVP ONE (14:56)
[2016-10-17 15:16] LABS: Calcium 7.8 mg/dL (8.6-10.8); Potassium 3.7 mEq/L (3.5-4.5)
[2016-10-17] MEDS ORDERED: Furosemide 40 MG/4 ML VIAL IVP ONE (15:45)
--- NOTE | 2016-10-17 17:43 | Internal Med Progress Note ---
Date of Encounter: 10/17/16 Time of Encounter: 10:15 - Assessment and plan (1) Atrial fibrillation with rapid ventricular response Current Visit: Yes Status: Acute Assessment and plan: Patient presented with palpitations and shortness of breath. He was found to have afib with rvr. Patient had an unsuccessful attempt of DCCV. EP consulted. Appreciate cardiology input. Continue amiodarone drip, oral cardizem and oral metoprolol, heparin drip until inr therapeutic. 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 Echocardiogram (08/17/2016). LVEF 50-55%, diastolic function. Severely dilated LA , moderately dilated RA, mild MR. (2) Acute respiratory failure with hypoxemia Current Visit: Yes Status: Acute Assessment and plan: Secondary to A. fib with RVR, diastolic heart failure exacerbation and suspected COPD. Patient does not use oxygen at home. Echocardiogram (08/17/2016) . LVEF 50-55%, diastolic function, severely dilated LA, moderately dilated RA, normal RV size and function. Chest x-ray shows pulmonary vascular congestion. He received aggressive diuresis with UOP 1210 ml but this was stopped due to acute kidney injury. Chest x-ray 10/15 showed no acute process. Requiring 2.5 L of oxygen since admission. Continue nebs, fluid restriction, beta asia, add mucinex. (3) Acute worsening of stage 3 chronic kidney disease Current Visit: Yes Status: Acute Assessment and plan: Patient with history of chronic kidney disease stage III for the past year. BUN and creatinine trending up. unremarkable renal ultrasound. BMP this afternoon. Holding Lasix. (4) Acute diastolic heart failure Current Visit: Yes Status: Acute Assessment and plan: plan as above (5) Mitral regurgitation Current Visit: Yes Status: Chronic Assessment and plan: Mild to moderate MR and [id number] AR. Qualifiers: Cardiac valve disease etiology: nonrheumatic Qualified Code(s): I34.0 - Nonrheumatic mitral (valve) insufficiency (6) CAD (coronary artery disease) Current Visit: Yes Status: Chronic Assessment and plan: stable. continue ASA, statin. Qualifiers: Coronary Disease-Associated Artery/Lesion type: circle artery [place] vs. transplanted heart: circle heart Associated angina: without angina Qualified Code(s): I25.10 - Atherosclerotic heart disease of circle coronary artery without angina pectoris (7) Severe aortic stenosis by prior echocardiogram Current Visit: Yes Status: Acute - Subjective Interval history: Patient reports no palpitations. no chest pain. no lightheadedness. no headache. - Constitutional Vitals: Temp Pulse Resp BP Pulse Ox 97.3 F L 125 17 100/67 99 10/17/16 15:56 10/17/16 16:00 10/17/16 15:56 10/17/16 16:00 10/17/16 15:56 General appearance: Present: cooperative, A&O X 3, pleasant, no acute distress, answers questions appropriately - Neck Neck exam general surgery: Present: supple, trachea midline. Absent: lymphadenopathy - Respiratory Respiratory exam: Present: CTAB - Cardiovascular Cardiovascular exam: Present: RRR - GI/Abdominal GI/Abdominal exam: Present: normal bowel sounds, soft. Absent: distended, tenderness - Extremities Exam Extremities exam: Present: pedal edema (1+ le edema) - Back Exam Back exam: Absent: CVA tenderness (L), CVA tenderness (R) - Neurological Exam Neurological exam: Present: alert, oriented X3, no focal deficits, strengths equal and symetr throughout. Absent: facial droop, speech deficit - Skin Skin exam: Absent: rash Internal Medicine: Result - Labs CBC & Chem 7: 10/17/16 00:58 10/17/16 14:55 Labs: Short CBC 10/17/16 Range/Units 00:58 WBC 10.5 (4.3-11.1) K/mcL Hgb 12.6 L (12.9-16.9) g/dL Hct 37.3 L (37.5-50.1) % Plt Count 135 L (140-400) K/mcL Neutrophils # 7.2 (1.6-8.9) K/mcL BMP 10/17/16 10/17/16 00:58 14:55 Sodium 131 L 132 L Potassium 3.7 3.7 Chloride 97 L 98 Carbon Dioxide 24 28 BUN 45 H 39 H Creatinine 1.84 H 1.51 H Glucose 116 H 113 H Calcium 7.9 L 7.8 L Liver Function 10/17/16 Range/Units 00:58 Total Bilirubin 1.8 H (0.2-1.2) mg/dL AST 104 H (5-34) Units/L ALT 94 H (0-55) Units/L Alkaline Phosphatase 92 (38-126) Units/L Albumin 2.7 L (3.5-5.0) g/dL - ABG Interpretation ABG results: ABG ABG pH 7.47 pH Units (7.32-7.45) H 10/14/16 14:25 ABG pCO2 29 mmHg (35-45) L 10/14/16 14:25 ABG pO2 89 mmHg (85-104) 10/14/16 14:25 ABG O2 Saturation 97 % (95-98) 10/14/16 14:25 PT/INR, D-dimer PT 45.5 Seconds (9.4-12.1) H* 10/17/16 00:58 - Impressions Impressions Retroperitoneum Ultrasound 10/16/16 18:00 IMPRESSION: Unremarkable ultrasound of the kidneys. D/ / aMrk Garcia MD / Mark Garcia MD Interpreting Provider: Mark Garcia MD Consult Discharge Plan - Plan Referrals: Rafael Ugarte MD [Primary Care Provider] - (SENT WEB REQUEST ON 10-14-16 @ [phone])
[2016-10-17] MEDS: *HR* Amiodarone 200 MG TABLET PO SCH (20:07)
[2016-10-18] MEDS: *HR* Digoxin 0.5 MG/2 ML AMPUL IVP SCH (00:27)
[2016-10-18] MEDS: Levalbuterol Neb 1.25 MG/3 ML IH SCH ×4 (05:17→21:35)
[2016-10-18 05:37] LABS: Basophils % 0.4 %; Eosinophils # 0.2 K/mcL (0.0-0.6); Eosinophils % 1.7 %; Hemoglobin 12.3 g/dL (12.9-16.9); Immature Granulocytes % 1.3 % (0-4); Lymphocytes # 2.3 K/mcL (0.6-4.6); Lymphocytes % 24.4 %; Mean Corpuscular HGB Conc 33.2 g/dL (31.6-35.5); Mean Corpuscular Hemoglobin 28.7 pg (28.0-33.3); Mean Corpuscular Volume 86.2 fL (83.0-100.0); Mean Platelet Volume 11.7 fL (9.4-12.4); Monocytes # 0.7 K/mcL (0.0-1.3); Monocytes % 7.6 %; Neutrophils # 6.1 K/mcL (1.6-8.9); Platelet Count 151 K/mcL (140-400); Red Blood Count 4.29 M/mcL (4.19-5.50); Red Cell Distribution Width 14.5 % (11.5-14.5); Segmented Neutrophils % 64.6 %
[2016-10-18 05:41] LABS: INR 3.8; Prothrombin Time 42.7 Seconds (9.4-12.1)
[2016-10-18] MEDS: Famotidine 20 MG TABLET PO SCH ×2 (05:51→16:43)
[2016-10-18 05:54] LABS: Albumin 2.4 g/dL (3.5-5.0); Albumin/Globulin Ratio 0.8 (1.1-2.2); Bilirubin,Total 1.6 mg/dL (0.2-1.2); Calcium 7.7 mg/dL (8.6-10.8); Globulin 3.2 g/dL (2.4-3.5); Potassium 3.7 mEq/L (3.5-4.5); Total Protein 5.6 g/dL (6.0-8.3)
[2016-10-18 06:02] LABS: Platelet Estimate Normal (Normal)
[2016-10-18 06:03] LABS: Polychromasia 1+ (Not Present)
[2016-10-18 06:04] LABS: Reactive Lymphocytes Present (Not Present)
[2016-10-18] MEDS: Metoprolol XL (24 HR) Succ 50 MG TAB.ER.24H PO SCH ×2 (07:22→20:15)
[2016-10-18] MEDS: Finasteride 5 MG TABLET PO SCH (07:23)
[2016-10-18] MEDS: Multivit/Ca/Min/Fe/FA 1 TAB TABLET PO SCH (07:23)
[2016-10-18] MEDS: Diltiazem CD (24hr) 180 MG CAPSULE PO SCH (07:23)
[2016-10-18] MEDS: Aspirin 81 MG TAB.CHEW PO SCH (07:23)
[2016-10-18] MEDS: Cholecalciferol (D-3) 1,000 UNIT TABLET PO SCH (07:23)
[2016-10-18] MEDS: *HR* Amiodarone 200 MG TABLET PO SCH ×2 (07:23→20:18)
--- NOTE | 2016-10-18 09:18 | Cardiology Progress Note ---
Date of Encounter: 10/18/16 Time of Encounter: 09:00 Assessment and Plan (1) Atrial fibrillation with rapid ventricular response Current Visit: Yes Status: Acute Per EP: -Presented with afib with RVR, etiology unclear. Reports URI symptoms x2+ weeks with failed outpatient treatment. -Hx of afib/flutter s/p DERRICK/DCCV x2 last summer with early recurrence of afib. -Has since been rate controlled on oral BB and CCB in outpatient setting. -Anticoagulated on Coumadin, INR followed by [facility]. -INR subtherapeutic upon admission, now supra-therapeutic. Continue coumadin, pharmacy dosing as inpt. -Continues to be difficult to rate control. HRs improved today with AVg HR was 113 bpm over 12 hours. On amiodarone gtt, toprol XL 75 mg BID, and cardizem 360 mg daily and amio po 400mg BID. -Status post cardioversion yesterday with quick return of atrial fibrillation. Per discussion with , patient went into SR for less than 1 minute and was then back in a.fib RVR. -WIll continue to monitor. (2) Valvular heart disease Current Visit: Yes Status: Acute Per cardiology: -Known severe and moderate MR--has been referred to [facility] for replacement evaluation; medical therapy has been recommended at this time. -Saw CT surgery at [facility] on 10/11--was told he needed to have improved rate control of afib and plan for repeat TTE in a few months per report. -Will continue to monitor (3) CAD (coronary artery disease) Current Visit: Yes Status: Chronic Per cardiology: -Mild, non-obstructive CAD per [facility] in 2016. -Denies chest pain. -ON asa, beta asia, and statin. - Will continue to monitor. Qualifiers: Coronary Disease-Associated Artery/Lesion type: [place] artery [place] vs. transplanted heart: [place] heart Associated angina: without angina Qualified Code(s): I25.10 - Atherosclerotic heart disease of [place] coronary artery without angina pectoris Discussion w patient/family: The assessment and plan as outlined above was discussed with the patient who expressed understanding and agreement. All questions were answered. Thank you for involving us in the care of your patient. Please call with any questions. Discussed and reviewed with . Subjective Principal diagnosis: Afib with RVR Interval history: Heart rate slightly improved today with average HR 113 overnight. Patient states he feels well this morning. Patient sitting in chair at time of assessment. Patient states breathing is ok today. Objective Vital Signs, Last 4 Hours Temp Pulse Resp BP Pulse Ox 10/18/16 07:27 112 10/18/16 07:11 97.7 F 116 16 92/70 99 General: Conversant, No Apparent Distress HEENT: Atraumatic, Normocephaly, Mucus Membranes Moist Neck: No JVD, Normal carotid pulses Cardiac: Other (Irregularly, irregular. ) Lungs: Other (Bilateral lower lobes with diminished breath sounds. ) Neuro: Alert and responsive, No focal deficits noted Abdomen: Soft, Non-Tender Skin: No rashes noted on visualized skin Musculoskeletal: No Chest Wall Tenderness Extremities: No Clubbing, No Cyanosis, Normal Pulses, Other (2+ bilateral lower extremity pitting edema. ) Results 10/18/16 05:02 10/18/16 05:02 Lab Results Active Medications Acetaminophen (Tylenol) 650 mg PO Q6HR PRN PRN Reason: Mild Pain (1-3) Stop: 04/14/17 16:03 Amiodarone HCl (Cordarone) 400 mg PO BID [facility] Stop: 04/18/17 21:01 Last Admin: 10/18/16 07:23 Dose: 400 mg Aspirin (Aspirin) 81 mg PO DAILY [facility] Stop: 04/14/17 16:01 Last Admin: 10/18/16 07:23 Dose: 81 mg Atorvastatin Calcium (Lipitor) 40 mg PO HS [facility] Stop: 04/14/17 21:01 Last Admin: 10/17/16 20:07 Dose: 40 mg Diltiazem HCl (Cardizem Cd) 360 mg PO DAILY [facility] Stop: 04/15/17 09:01 Last Admin: 10/18/16 07:23 Dose: 360 mg Famotidine (Pepcid) 10 mg PO Q12HR [facility] Stop: 04/14/17 18:01 Last Admin: 10/18/16 05:51 Dose: 10 mg Finasteride (Proscar) 5 mg PO DAILY [facility] PRN Reason: Protocol Stop: 04/15/17 09:01 Last Admin: 10/18/16 07:23 Dose: 5 mg Guaifenesin (Mucinex) 1,200 mg PO BID [facility] Stop: 04/17/17 09:01 Last Admin: 10/18/16 07:23 Dose: 1,200 mg Amiodarone HCl/Dextrose (Amiodarone Drip Premix 360mg/200ml) 360 mg in 200 mls @ 16.667 mls/hr IVC CONT RON PRN Reason: 0.5 MG/MIN Stop: 04/14/17 21:16 Last Admin: 10/17/16 17:00 Dose: 0.5 mg/min, 16.667 mls/hr Levalbuterol HCl (Xopenex) 1.25 mg IH [id number] [facility] Stop: 04/17/17 16:01 Last Admin: 10/18/16 05:17 Dose: Not Given Metoprolol Succinate (Toprol Xl) 75 mg PO BID [facility] Stop: 04/14/17 21:01 Last Admin: 10/18/16 07:22 Dose: 75 mg Multivitamins/Calcium (Thera M Plus) 1 tab PO DAILY [facility] Stop: 04/15/17 09:01 Last Admin: 10/18/16 07:23 Dose: 1 tab Naloxone HCl (Narcan) 0.4 mg IVP Q2MIN PRN PRN Reason: Opioid Reversal Stop: 04/14/17 16:03 Ondansetron HCl (Zofran) 4 mg IVP Q8HR PRN PRN Reason: Nausea And Vomiting Stop: 04/14/17 16:03 Tamsulosin HCl (Flomax) 0.4 mg PO DAILY [facility] PRN Reason: Protocol Stop: 04/15/17 09:01 Last Admin: 10/18/16 07:23 Dose: 0.4 mg Vitamin D (Vitamin D) 2,000 unit PO DAILY [facility] Stop: 04/15/17 09:01 Last Admin: 10/18/16 07:23 Dose: 2,000 unit Warfarin Sodium (Coumadin Perpt) 0 each PO DAILY@1800 PRN PRN Reason: SEE COMMENTS Stop: 04/15/17 18:01 Laboratory Tests 10/18/16 10/18/16 10/18/16 05:02 05:02 05:02 Hgb 12.3 L INR 3.8 Creatinine 1.51 H - Imaging and Cardiology Chest Xray: report reviewed Echo: report reviewed - EKG Interpretation EKG results cardiology: other (Telemetry reviewed with average HR previous 12 hours noted to be 113, atrial fibrillation. Longest pause 1.3 seconds. PVCs and couplets noted.) Consult Discharge Plan - Plan Referrals: Stew Geronimo CNP [Advanced Practice Nurse] - 11/19/16 11:00 am Rafael Ugarte MD [Primary Care Provider] - 10/23/16 3:00 pm ()
--- NOTE | 2016-10-18 15:27 | Internal Med Progress Note ---
Date of Encounter: 10/18/16 Time of Encounter: 13:00 - Assessment and plan (1) Atrial fibrillation with rapid ventricular response Current Visit: Yes Status: Acute Assessment and plan: Patient presented with palpitations and shortness of breath. He was found to have afib with rvr. Patient had an unsuccessful attempt of DCCV 10/17. received IV digoxin 10/17. EP consulted. Appreciate cardiology input. HR is trending down to the 100s-110s. Continue amiodarone drip, oral amiodaron, oral cardizem, metoprolol and warfarin. 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 Echocardiogram (08/17/2016). LVEF 50-55%, diastolic function. Severely dilated LA , moderately dilated RA, mild MR. (2) Acute respiratory failure with hypoxemia Current Visit: Yes Status: Acute Assessment and plan: Secondary to A. fib with RVR, diastolic heart failure exacerbation and suspected COPD. Patient does not use oxygen at home. Echocardiogram (08/17/2016) . LVEF 50-55%, diastolic function, severely dilated LA, moderately dilated RA, normal RV size and function. Chest x-ray shows pulmonary vascular congestion. He received aggressive diuresis with UOP 1210 ml but this was stopped due to acute kidney injury. Chest x-ray 10/15 showed no acute process. had good diuresis with lasix IV yesterday. Requiring 3 L of oxygen. Continue lasix, nebs, fluid restriction, beta asia, mucinex. (3) Acute worsening of stage 3 chronic kidney disease Current Visit: Yes Status: Acute Assessment and plan: Patient with history of chronic kidney disease stage III for the past year. Creatinine plateaud at 1.51. unremarkable renal ultrasound. close monitoring. avoid nephrotoxic agents as possible. (4) Acute diastolic heart failure Current Visit: Yes Status: Acute Assessment and plan: plan as above (5) Mitral regurgitation Current Visit: Yes Status: Chronic Assessment and plan: Mild to moderate MR and [id number] AR. Qualifiers: Cardiac valve disease etiology: nonrheumatic Qualified Code(s): I34.0 - Nonrheumatic mitral (valve) insufficiency (6) CAD (coronary artery disease) Current Visit: Yes Status: Chronic Assessment and plan: stable. continue ASA, statin. Qualifiers: Coronary Disease-Associated Artery/Lesion type: [place] artery [place] vs. transplanted heart: [place] heart Associated angina: without angina Qualified Code(s): I25.10 - Atherosclerotic heart disease of [place] coronary artery without angina pectoris (7) Severe aortic stenosis by prior echocardiogram Current Visit: Yes Status: Acute - Subjective Interval history: Patient denies any chest pain, shortness of breath or headaches. - Constitutional Vitals: Temp Pulse Resp BP Pulse Ox 97.8 F 91 16 84/69 97 10/18/16 11:43 10/18/16 15:04 10/18/16 11:43 10/18/16 15:00 10/18/16 11:43 General appearance: Present: cooperative, A&O X 3, pleasant, no acute distress, answers questions appropriately - Neck Neck exam general surgery: Present: supple, trachea midline. Absent: lymphadenopathy - Respiratory Respiratory exam: Present: CTAB - Cardiovascular Cardiovascular exam: Present: irregular rhythm, tachycardia - GI/Abdominal GI/Abdominal exam: Present: normal bowel sounds, soft. Absent: distended, tenderness - Extremities Exam Extremities exam: Present: pedal edema - Back Exam Back exam: Absent: CVA tenderness (L), CVA tenderness (R) - Neurological Exam Neurological exam: Present: alert, oriented X3, no focal deficits, strengths equal and symetr throughout. Absent: facial droop, speech deficit Internal Medicine: Result - Labs CBC & Chem 7: 10/18/16 05:02 10/18/16 05:02 Labs: Short CBC 10/18/16 Range/Units 05:02 WBC 9.5 (4.3-11.1) K/mcL Hgb 12.3 L (12.9-16.9) g/dL Hct 37.0 L (37.5-50.1) % Plt Count 151 (140-400) K/mcL Neutrophils # 6.1 (1.6-8.9) K/mcL BMP 10/18/16 05:02 Sodium 132 L Potassium 3.7 Chloride 96 L Carbon Dioxide 30 H BUN 33 H Creatinine 1.51 H Glucose 104 H Calcium 7.7 L Liver Function 10/18/16 Range/Units 05:02 Total Bilirubin 1.6 H (0.2-1.2) mg/dL AST 70 H (5-34) Units/L ALT 72 H (0-55) Units/L Alkaline Phosphatase 92 (38-126) Units/L Albumin 2.4 L (3.5-5.0) g/dL - ABG Interpretation ABG results: ABG ABG pH 7.47 pH Units (7.32-7.45) H 10/14/16 14:25 ABG pCO2 29 mmHg (35-45) L 10/14/16 14:25 ABG pO2 89 mmHg (85-104) 10/14/16 14:25 ABG O2 Saturation 97 % (95-98) 10/14/16 14:25 PT/INR, D-dimer PT 42.7 Seconds (9.4-12.1) H 10/18/16 05:02 Consult Discharge Plan - Plan Referrals: Stew Geronimo CNP [Advanced Practice Nurse] - 11/19/16 11:00 am Rafael Ugarte MD [Primary Care Provider] - 10/23/16 3:00 pm ()
[2016-10-18] MEDS: Amiodarone Premix 360 MG/200 ML BAG IVC SCH (16:44)
[2016-10-18] MEDS ORDERED: *HR* Warfarin 3 MG TABLET PO ONE (18:00)
[2016-10-18] MEDS ORDERED: *HR* Warfarin 5 MG TABLET PO SCH (18:00)
[2016-10-19] MEDS: Levalbuterol Neb 1.25 MG/3 ML IH SCH ×4 (03:58→21:54)
[2016-10-19] MEDS: Famotidine 20 MG TABLET PO SCH ×2 (04:52→17:07)
[2016-10-19] MEDS: Amiodarone Premix 360 MG/200 ML BAG IVC SCH (04:53)
[2016-10-19 05:12] LABS: Hematocrit 38.7 % (37.5-50.1); Hemoglobin 12.4 g/dL (12.9-16.9); Mean Corpuscular Hemoglobin 28.2 pg (28.0-33.3); Mean Corpuscular Volume 88.2 fL (83.0-100.0); Mean Platelet Volume 11.1 fL (9.4-12.4); Platelet Count 167 K/mcL (140-400); Red Blood Count 4.39 M/mcL (4.19-5.50); Red Cell Distribution Width 14.8 % (11.5-14.5)
[2016-10-19 05:16] LABS: INR 2.8; Prothrombin Time 31.2 Seconds (9.4-12.1)
[2016-10-19 05:28] LABS: Alanine Aminotransferase 77 Units/L (0-55); Albumin 2.3 g/dL (3.5-5.0); Albumin/Globulin Ratio 0.7 (1.1-2.2); Alkaline Phosphatase 102 Units/L (38-126); Aspartate Amino Transferase 69 Units/L (5-34); BUN/Creatinine Ratio 21 (6-26); Bilirubin,Total 1.5 mg/dL (0.2-1.2); Blood Urea Nitrogen 28 mg/dL (8-26); Calcium 7.9 mg/dL (8.6-10.8); Carbon Dioxide 26 mEq/L (19-29); Chloride 100 mEq/L (98-109); Globulin 3.3 g/dL (2.4-3.5); Glucose 107 mg/dL (70-99); Magnesium 2.1 mg/dL (1.6-2.6); Osmolality,Calculated 282 (280-300); Potassium 3.7 mEq/L (3.5-4.5); Sodium 133 mEq/L (136-145); Total Protein 5.6 g/dL (6.0-8.3); eGFR For African Americans > 60 (> 60); eGFR For Non-African Americans 52 (> 60)
[2016-10-19 05:44] LABS: Lymphocytes # 3.7 K/mcL (0.6-4.6); Monocytes # 0.4 K/mcL (0.0-1.3); Neutrophils # 6.8 K/mcL (1.6-8.9); Platelet Estimate Normal (Normal); Reactive Lymphocytes Present (Not Present)
[2016-10-19] MEDS: Finasteride 5 MG TABLET PO SCH (08:07)
[2016-10-19] MEDS: Cholecalciferol (D-3) 1,000 UNIT TABLET PO SCH (08:07)
[2016-10-19] MEDS: Multivit/Ca/Min/Fe/FA 1 TAB TABLET PO SCH (08:07)
[2016-10-19] MEDS: Aspirin 81 MG TAB.CHEW PO SCH (08:07)
[2016-10-19] MEDS: Diltiazem CD (24hr) 180 MG CAPSULE PO SCH (08:07)
[2016-10-19] MEDS: *HR* Amiodarone 200 MG TABLET PO SCH ×2 (08:07→20:54)
[2016-10-19] MEDS: Metoprolol XL (24 HR) Succ 50 MG TAB.ER.24H PO SCH ×2 (08:07→20:55)
[2016-10-19] MEDS: *HR* Digoxin 0.125 MG TABLET PO SCH (09:10)
[2016-10-19] MEDS ORDERED: Furosemide 40 MG/4 ML VIAL IVP ONE (09:12)
--- NOTE | 2016-10-19 09:58 | Cardiology Progress Note ---
Date of Encounter: 10/19/16 Time of Encounter: 08:55 Assessment and Plan (1) Atrial fibrillation with rapid ventricular response Current Visit: Yes Status: Acute Per Cardiology: -Presented with afib with RVR, etiology unclear. Reports URI symptoms x2+ weeks with failed outpatient treatment. -Hx of afib/flutter s/p DERRICK/DCCV x2 last summer with early recurrence of afib. Status post unsuccessful DERRICK/DCCV earlier this week. -Has since been rate controlled on oral BB and CCB in outpatient setting. -Anticoagulated on Coumadin, INR followed by [facility]. INR therapeutic. Pharmacy dosing. -Telemetry review shows average heart rate over 12 hours was 99 bpm. Heart rate 110-113 on my exam. He reports he is feeling better. Recommend discontinuing IV Cardizem. Continue amiodarone 400 mg QID through friday. Start 200 mg BID Friday. Continue oral digoxin, Cardizem, and metoprolol. Will continue to monitor. Possible d/c in am. (2) CAD (coronary artery disease) Current Visit: Yes Status: Chronic Per cardiology: Mild, non-obstructive CAD per [facility] in 2016. Denies chest pain. ON asa, beta asia, and statin. Qualifiers: Coronary Disease-Associated Artery/Lesion type: [place] artery [place] vs. transplanted heart: [place] heart Associated angina: without angina Qualified Code(s): I25.10 - Atherosclerotic heart disease of [place] coronary artery without angina pectoris (3) Valvular heart disease Current Visit: Yes Status: Acute Per cardiology: -Known severe and moderate MR--has been referred to [facility] for replacement evaluation; medical therapy has been recommended at this time. -Seen by CT surgery at [facility] on 10/11--was told he needed to have improved rate control of afib and plan for repeat TTE in a few months per report. Out-pt f/u once afib controlled. Continues to have bilateral lower extremity edema. Discussed with Dr. Hernández. We' ll give IV Lasix 40 mg once today. Kidney function has improved. Start Bumex 1 mg twice a day 10/20/16. Discussion w patient/family: The assessment and plan as outlined above was discussed with the patient and/or family members who expressed understanding and agreement. All questions were answered. Thank you for involving us in the care of your patient. Please call with any questions. Subjective Principal diagnosis: Afib with RVR Interval history: Pt denies SOB or chest pain. Resting comfortably in bed on 2L NC without distress. Objective Vital Signs, Last 4 Hours Temp Pulse Resp BP Pulse Ox 10/19/16 08:12 92 10/19/16 07:26 97.6 F 98 16 104/77 96 General: Conversant, No Apparent Distress HEENT: Atraumatic, Normocephaly, Mucus Membranes Moist Neck: No JVD, Normal carotid pulses Cardiac: Other (Irregularly irregular) Lungs: Normal Breath Sounds, No Wheeze, Rales, Rhonchi, Other (Diminished basis) Neuro: Alert and responsive, No focal deficits noted Abdomen: Soft, Non-Tender Skin: No rashes noted on visualized skin Musculoskeletal: No Chest Wall Tenderness Extremities: No Clubbing, No Cyanosis, Normal Pulses, Other (2+ pedal and ankle edema) Results 10/19/16 04:45 10/19/16 04:45 Lab Results 10/19/16 10/19/16 10/19/16 04:45 04:45 04:45 WBC 11.0 Hgb 12.4 L Hct 38.7 Plt Count 167 INR 2.8 Sodium 133 L Potassium 3.7 Chloride 100 Carbon Dioxide 26 BUN 28 H Creatinine 1.33 H Glucose 107 H Calcium 7.9 L Magnesium 2.1 Total Bilirubin 1.5 H AST 69 H ALT 77 H Alkaline Phosphatase 102 Consult Discharge Plan - Plan Referrals: Stew Geronimo CNP [Advanced Practice Nurse] - 11/19/16 11:00 am Rafael Ugarte MD [Primary Care Provider] - 10/23/16 3:00 pm ()
--- NOTE | 2016-10-19 13:25 | Internal Med Progress Note ---
Date of Encounter: 10/19/16 Time of Encounter: 10:45 - Assessment and plan (1) Atrial fibrillation with rapid ventricular response Current Visit: Yes Status: Acute Assessment and plan: Patient presented with palpitations and shortness of breath. He was found to have afib with rvr. Patient had an unsuccessful attempt of DCCV 10/17. received IV digoxin 10/17. EP consulted. Appreciate cardiology input. HR is trending down to the 90-100s. Off amiodarone drip. 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 Echocardiogram (08/17/2016). LVEF 50-55%, diastolic function. Severely dilated LA , moderately dilated RA, mild MR. (2) Acute respiratory failure with hypoxemia Current Visit: Yes Status: Acute Assessment and plan: Secondary to A. fib with RVR, diastolic heart failure exacerbation and suspected COPD. Patient does not use oxygen at home. Echocardiogram (08/17/2016) . LVEF 50-55%, diastolic function, severely dilated LA, moderately dilated RA, normal RV size and function. Chest x-ray shows pulmonary vascular congestion. He received aggressive diuresis with UOP 1210 ml but this was stopped due to acute kidney injury. Chest x-ray 10/15 showed no acute process. clinically is slowly improving. Requiring 2 L of oxygen. Continue bumex, nebs, fluid restriction, beta asia, mucinex. (3) Acute worsening of stage 3 chronic kidney disease Current Visit: Yes Status: Acute Assessment and plan: Patient with history of chronic kidney disease stage III for the past year. Creatinine trending down. unremarkable renal ultrasound. close monitoring. avoid nephrotoxic agents as possible. (4) Acute diastolic heart failure Current Visit: Yes Status: Acute Assessment and plan: bumex. metoprolol. (5) Mitral regurgitation Current Visit: Yes Status: Chronic Assessment and plan: Mild to moderate MR and [id number]-ridplate AR. Qualifiers: Cardiac valve disease etiology: nonrheumatic Qualified Code(s): I34.0 - Nonrheumatic mitral (valve) insufficiency (6) CAD (coronary artery disease) Current Visit: Yes Status: Chronic Assessment and plan: stable. continue ASA, statin. Qualifiers: Coronary Disease-Associated Artery/Lesion type: [place] artery [place] vs. transplanted heart: [place] heart Associated angina: without angina Qualified Code(s): I25.10 - Atherosclerotic heart disease of [place] coronary artery without angina pectoris (7) Severe aortic stenosis by prior echocardiogram Current Visit: Yes Status: Acute - Subjective Interval history: No chest pain. No shortness of breath. - Constitutional Vitals: Temp Pulse Resp BP Pulse Ox 97.5 F L 89 16 91/69 98 10/19/16 11:34 10/19/16 11:34 10/19/16 11:34 10/19/16 11:34 10/19/16 11:34 General appearance: Present: cooperative, A&O X 3, pleasant, no acute distress, answers questions appropriately - Eye Eye exam: Present: PERRL, sclera anicteric - Neck Neck exam general surgery: Present: supple, trachea midline. Absent: lymphadenopathy - Respiratory Respiratory exam: Present: CTAB - Cardiovascular Cardiovascular exam: Present: irregular rhythm, tachycardia - GI/Abdominal GI/Abdominal exam: Present: normal bowel sounds, soft. Absent: distended, tenderness - Extremities Exam Extremities exam: Absent: pedal edema - Back Exam Back exam: Absent: CVA tenderness (L), CVA tenderness (R) - Neurological Exam Neurological exam: Present: alert, oriented X3, no focal deficits, strengths equal and symetr throughout. Absent: facial droop, speech deficit - Skin Skin exam: Absent: rash Internal Medicine: Result - Labs CBC & Chem 7: 10/19/16 04:45 10/19/16 04:45 Labs: Short CBC 10/19/16 Range/Units 04:45 WBC 11.0 (4.3-11.1) K/mcL Hgb 12.4 L (12.9-16.9) g/dL Hct 38.7 (37.5-50.1) % Plt Count 167 (140-400) K/mcL Neutrophils # 6.8 (1.6-8.9) K/mcL BMP 10/19/16 04:45 Sodium 133 L Potassium 3.7 Chloride 100 Carbon Dioxide 26 BUN 28 H Creatinine 1.33 H Glucose 107 H Calcium 7.9 L Liver Function 10/19/16 Range/Units 04:45 Total Bilirubin 1.5 H (0.2-1.2) mg/dL AST 69 H (5-34) Units/L ALT 77 H (0-55) Units/L Alkaline Phosphatase 102 (38-126) Units/L Albumin 2.3 L (3.5-5.0) g/dL - ABG Interpretation ABG results: ABG ABG pH 7.47 pH Units (7.32-7.45) H 10/14/16 14:25 ABG pCO2 29 mmHg (35-45) L 10/14/16 14:25 ABG pO2 89 mmHg (85-104) 10/14/16 14:25 ABG O2 Saturation 97 % (95-98) 10/14/16 14:25 PT/INR, D-dimer PT 31.2 Seconds (9.4-12.1) H 10/19/16 04:45 Consult Discharge Plan - Plan Referrals: Stew Geronimo CNP [Advanced Practice Nurse] - 11/19/16 11:00 am Rafael Ugarte MD [Primary Care Provider] - 10/23/16 3:00 pm ()
[2016-10-19] MEDS ORDERED: *HR* Warfarin 5 MG TABLET PO ONE (18:00)
[2016-10-19] MEDS ORDERED: *HR* Enoxaparin 120 MG/0.8 ML SYRINGE SQ SCH (20:00)
[2016-10-20] MEDS: Levalbuterol Neb 1.25 MG/3 ML IH SCH ×4 (04:03→21:32)
[2016-10-20] MEDS: Famotidine 20 MG TABLET PO SCH ×2 (06:13→16:58)
[2016-10-20 06:28] LABS: Hematocrit 37.1 % (37.5-50.1); Hemoglobin 12.3 g/dL (12.9-16.9); Mean Corpuscular HGB Conc 33.2 g/dL (31.6-35.5); Mean Corpuscular Hemoglobin 29.1 pg (28.0-33.3); Mean Corpuscular Volume 87.7 fL (83.0-100.0); Mean Platelet Volume 11.1 fL (9.4-12.4); Monocytes # 0.8 K/mcL (0.0-1.3); Platelet Count 186 K/mcL (140-400); Red Blood Count 4.23 M/mcL (4.19-5.50); Red Cell Distribution Width 14.9 % (11.5-14.5)
[2016-10-20 06:37] LABS: INR 2.2; Prothrombin Time 23.9 Seconds (9.4-12.1)
[2016-10-20 06:47] LABS: Alanine Aminotransferase 68 Units/L (0-55); Albumin 2.2 g/dL (3.5-5.0); Albumin/Globulin Ratio 0.7 (1.1-2.2); Alkaline Phosphatase 101 Units/L (38-126); Aspartate Amino Transferase 63 Units/L (5-34); BUN/Creatinine Ratio 20 (6-26); Bilirubin,Direct 0.7 mg/dL (0.0-0.5); Bilirubin,Indirect 0.7 mg/dL (0.0-1.2); Bilirubin,Total 1.4 mg/dL (0.2-1.2); Blood Urea Nitrogen 24 mg/dL (8-26); Calcium 7.8 mg/dL (8.6-10.8); Carbon Dioxide 26 mEq/L (19-29); Chloride 103 mEq/L (98-109); Globulin 3.2 g/dL (2.4-3.5); Glucose 96 mg/dL (70-99); Magnesium 2.1 mg/dL (1.6-2.6); Osmolality,Calculated 282 (280-300); Sodium 134 mEq/L (136-145); Total Protein 5.4 g/dL (6.0-8.3); eGFR For African Americans > 60 (> 60); eGFR For Non-African Americans 58 (> 60)
[2016-10-20 07:02] LABS: Eosinophils # 0.2 K/mcL (0.0-0.6); Lymphocytes # 1.2 K/mcL (0.6-4.6); Neutrophils # 7.7 K/mcL (1.6-8.9)
[2016-10-20 07:03] LABS: Platelet Estimate Normal (Normal)
[2016-10-20] MEDS: Multivit/Ca/Min/Fe/FA 1 TAB TABLET PO SCH (07:50)
[2016-10-20] MEDS: Diltiazem CD (24hr) 180 MG CAPSULE PO SCH (07:50)
[2016-10-20] MEDS: Metoprolol XL (24 HR) Succ 50 MG TAB.ER.24H PO SCH ×2 (07:50→21:06)
[2016-10-20] MEDS: Cholecalciferol (D-3) 1,000 UNIT TABLET PO SCH (07:50)
[2016-10-20] MEDS: *HR* Digoxin 0.125 MG TABLET PO SCH (07:50)
[2016-10-20] MEDS: Finasteride 5 MG TABLET PO SCH (07:50)
[2016-10-20] MEDS: Aspirin 81 MG TAB.CHEW PO SCH (07:51)
[2016-10-20] MEDS: *HR* Amiodarone 200 MG TABLET PO SCH ×2 (07:51→21:06)
[2016-10-20] MEDS: Bumetanide 1 MG TABLET PO SCH ×2 (07:53→16:58)
--- NOTE | 2016-10-20 09:36 | Cardiology Progress Note ---
Date of Encounter: 10/20/16 Time of Encounter: 08:30 Assessment and Plan (1) Atrial fibrillation with rapid ventricular response Current Visit: Yes Status: Acute Per Cardiology: -Presented with afib with RVR, etiology unclear. Reports URI symptoms x2+ weeks with failed outpatient treatment. -Hx of afib/flutter s/p DERRICK/DCCV x2 last summer with early recurrence of afib. Status post unsuccessful DERRICK/DCCV earlier this week. -Has since been rate controlled on oral BB and CCB in outpatient setting. -Anticoagulated on Coumadin, INR followed by [facility]. INR therapeutic. Pharmacy dosing. Electrophysiology consulted during stay. Amiodarone dosing recommendations given. HR improved. Telemetry review shows average heart rate over 12 hours was 87 bpm. Heart rate 90's currently. Continue amiodarone 400 mg QID through today. Start 200 mg BID tomorrow. RX printed and on chart. Continue oral digoxin, Cardizem, and metoprolol. F/u will be made with [facility] in 1-2 weeks. Call with questions. (2) CAD (coronary artery disease) Current Visit: Yes Status: Chronic Per cardiology: Mild, non-obstructive CAD per [facility] in 2016. Denies chest pain. ON asa, beta asia, and statin. Qualifiers: Coronary Disease-Associated Artery/Lesion type: [place] artery [place] vs. transplanted heart: [place] heart Associated angina: without angina Qualified Code(s): I25.10 - Atherosclerotic heart disease of [place] coronary artery without angina pectoris (3) Valvular heart disease Current Visit: Yes Status: Acute Per cardiology: -Known severe and moderate MR--has been referred to [facility] for replacement evaluation; medical therapy has been recommended at this time. -Seen by CT surgery at [facility] on 10/11--was told he needed to have improved rate control of afib and plan for repeat TTE in a few months per report. Patient requesting records of stay be sent to Dr. Talavera at [facility]. I will notify office to sent records. Out-pt f/u to re-evaluate. Continues to have bilateral lower extremity edema. Scr returned to normal. Discussed with Dr. Hernández. We'll give IV Lasix 40 mg once today. Start oral Bumex 1 mg twice a day for maintenance dosing. Discussion w patient/family: The assessment and plan as outlined above was discussed with the patient and/or family members who expressed understanding and agreement. All questions were answered. Thank you for involving us in the care of your patient. Please call with any questions. Subjective Principal diagnosis: Afib with RVR Interval history: Pt denies SOB or chest pain. Resting comfortably sitting on side of bed. No complaints. Planning for possible d/c today. Objective Vital Signs, Last 4 Hours Temp Pulse Resp BP Pulse Ox 10/20/16 07:57 86 10/20/16 07:08 97.6 F 83 18 97/67 99 General: Conversant, No Apparent Distress HEENT: Atraumatic, Normocephaly, Mucus Membranes Moist Neck: No JVD, Normal carotid pulses Cardiac: Other (2/6 systolic murmur RSB, irregularly irregular.) Lungs: Normal Breath Sounds, No Wheeze, Rales, Rhonchi Neuro: Alert and responsive, No focal deficits noted Abdomen: Soft, Non-Tender Skin: No rashes noted on visualized skin Musculoskeletal: No Chest Wall Tenderness Extremities: No Clubbing, No Cyanosis, Normal Pulses, Other (1+ edema BLE. ) Results 10/20/16 05:51 10/20/16 05:51 Lab Results 10/20/16 10/20/16 10/20/16 05:51 05:51 05:51 WBC 9.9 Hgb 12.3 L Hct 37.1 L Plt Count 186 INR 2.2 Sodium 134 L Potassium 4.0 Chloride 103 Carbon Dioxide 26 BUN 24 Creatinine 1.22 Glucose 96 Calcium 7.8 L Magnesium 2.1 Total Bilirubin 1.4 H AST 63 H ALT 68 H Alkaline Phosphatase 101 Consult Discharge Plan - Plan Referrals: Stew Geronimo CNP [Advanced Practice Nurse] - 11/19/16 11:00 am Rafael Ugarte MD [Primary Care Provider] - 10/23/16 3:00 pm () Prescriptions: Amiodarone [Cordarone] 200 mg PO BID #66 tablet
[2016-10-20] MEDS ORDERED: Furosemide 40 MG/4 ML VIAL IVP ONE (09:47)
--- NOTE | 2016-10-20 12:35 | Internal Med Progress Note ---
Date of Encounter: 10/20/16 Time of Encounter: 07:45 - Assessment and plan (1) Atrial fibrillation with rapid ventricular response Current Visit: Yes Status: Acute Assessment and plan: Patient presented with palpitations and shortness of breath. He was found to have afib with rvr. Appreciate cardiology input. Patient had an unsuccessful attempt of DCCV 10/17. He received IV digoxin and amiodarone drip with heart rate control. HR is adequate. continue oral amiodarone, oral cardizem, metoprolol, digoxin and warfarin. INR therapeutic. okay to discharge. Echocardiogram (08/17/2016). LVEF 50-55%, diastolic function. Severely dilated LA , moderately dilated RA, mild MR. (2) Acute respiratory failure with hypoxemia Current Visit: Yes Status: Acute Assessment and plan: Secondary to A. fib with RVR, diastolic heart failure exacerbation and suspected COPD. Patient does not use oxygen at home. Echocardiogram (08/17/2016) . LVEF 50-55%, diastolic function, severely dilated LA, moderately dilated RA, normal RV size and function. Chest x-ray shows pulmonary vascular congestion. He received aggressive diuresis with UOP 1210 ml but this was stopped due to acute kidney injury. Chest x-ray 10/15 showed no acute process. clinically is slowly improving. He did well during the 6 min walk; however, he had nocturnal hypoxia. Overnight pulsoximetry test. Continue bumex, nebs, fluid restriction, beta asia, mucinex. (3) Acute worsening of stage 3 chronic kidney disease Current Visit: Yes Status: Acute Assessment and plan: Patient with history of chronic kidney disease stage III for the past year. Creatinine trending down. unremarkable renal ultrasound. close monitoring. avoid nephrotoxic agents as possible. (4) Acute diastolic heart failure Current Visit: Yes Status: Acute Assessment and plan: bumex. metoprolol. (5) Mitral regurgitation Current Visit: Yes Status: Chronic Assessment and plan: Mild to moderate MR and ywuj-zt-ztoiconr AR. Qualifiers: Cardiac valve disease etiology: nonrheumatic Qualified Code(s): I34.0 - Nonrheumatic mitral (valve) insufficiency (6) CAD (coronary artery disease) Current Visit: Yes Status: Chronic Assessment and plan: stable. continue ASA, statin. Qualifiers: Coronary Disease-Associated Artery/Lesion type: [place] artery [place] vs. transplanted heart: [place] heart Associated angina: without angina Qualified Code(s): I25.10 - Atherosclerotic heart disease of [place] coronary artery without angina pectoris (7) Severe aortic stenosis by prior echocardiogram Current Visit: Yes Status: Acute - Subjective Interval history: No chest pain. No shortness of breath. Patient denies any chest pain or shortness of breath. - Constitutional Vitals: Temp Pulse Resp BP Pulse Ox 97.9 F 90 17 96/66 98 10/20/16 11:01 10/20/16 11:01 10/20/16 11:01 10/20/16 11:01 10/20/16 11:01 General appearance: Present: cooperative, A&O X 3, pleasant, no acute distress, answers questions appropriately - Neck Neck exam general surgery: Present: supple, trachea midline. Absent: lymphadenopathy - Respiratory Respiratory exam: Present: CTAB - Cardiovascular Cardiovascular exam: Present: RRR - GI/Abdominal GI/Abdominal exam: Present: normal bowel sounds, soft. Absent: distended, tenderness - Extremities Exam Extremities exam: Present: pedal edema (1+ lower extremity edema.) - Back Exam Back exam: Absent: CVA tenderness (L), CVA tenderness (R) - Neurological Exam Neurological exam: Present: alert, oriented X3, no focal deficits, strengths equal and symetr throughout. Absent: facial droop, speech deficit - Skin Skin exam: Absent: rash Internal Medicine: Result - Labs CBC & Chem 7: 10/20/16 05:51 10/20/16 05:51 Labs: Short CBC 10/20/16 Range/Units 05:51 WBC 9.9 (4.3-11.1) K/mcL Hgb 12.3 L (12.9-16.9) g/dL Hct 37.1 L (37.5-50.1) % Plt Count 186 (140-400) K/mcL Neutrophils # 7.7 (1.6-8.9) K/mcL BMP 10/20/16 05:51 Sodium 134 L Potassium 4.0 Chloride 103 Carbon Dioxide 26 BUN 24 Creatinine 1.22 Glucose 96 Calcium 7.8 L Liver Function 10/20/16 Range/Units 05:51 Total Bilirubin 1.4 H (0.2-1.2) mg/dL Direct Bilirubin 0.7 H (0.0-0.5) mg/dL AST 63 H (5-34) Units/L ALT 68 H (0-55) Units/L Alkaline Phosphatase 101 (38-126) Units/L Albumin 2.2 L (3.5-5.0) g/dL - ABG Interpretation ABG results: ABG ABG pH 7.47 pH Units (7.32-7.45) H 10/14/16 14:25 ABG pCO2 29 mmHg (35-45) L 10/14/16 14:25 ABG pO2 89 mmHg (85-104) 10/14/16 14:25 ABG O2 Saturation 97 % (95-98) 10/14/16 14:25 PT/INR, D-dimer PT 23.9 Seconds (9.4-12.1) H 10/20/16 05:51 Consult Discharge Plan - Plan Referrals: Stew Geronimo CNP [Advanced Practice Nurse] - 11/19/16 11:00 am Rafael Ugarte MD [Primary Care Provider] - 10/23/16 3:00 pm () Prescriptions: Amiodarone [Cordarone] 200 mg PO BID #66 tablet
[2016-10-20] MEDS ORDERED: *HR* Warfarin 5 MG TABLET PO ONE (18:00)
[2016-10-21 04:39] LABS: Basophils # 0.1 K/mcL (0.0-0.2); Basophils % 0.6 %; Eosinophils # 0.1 K/mcL (0.0-0.6); Eosinophils % 1.1 %; Hematocrit 36.9 % (37.5-50.1); Hemoglobin 12.4 g/dL (12.9-16.9); Immature Granulocytes % 1.2 % (0-4); Lymphocytes # 3.8 K/mcL (0.6-4.6); Lymphocytes % 35.8 %; Mean Corpuscular HGB Conc 33.6 g/dL (31.6-35.5); Mean Corpuscular Volume 86.2 fL (83.0-100.0); Mean Platelet Volume 10.8 fL (9.4-12.4); Monocytes % 9.6 %; Neutrophils # 5.5 K/mcL (1.6-8.9); Platelet Count 200 K/mcL (140-400); Red Blood Count 4.28 M/mcL (4.19-5.50); Red Cell Distribution Width 14.6 % (11.5-14.5); Segmented Neutrophils % 51.7 %
[2016-10-21] MEDS: Levalbuterol Neb 1.25 MG/3 ML IH SCH (04:46)
[2016-10-21 04:51] LABS: BUN/Creatinine Ratio 19 (6-26); Blood Urea Nitrogen 25 mg/dL (8-26); Calcium 7.8 mg/dL (8.6-10.8); Carbon Dioxide 32 mEq/L (19-29); Chloride 100 mEq/L (98-109); Glucose 107 mg/dL (70-99); Magnesium 2.1 mg/dL (1.6-2.6); Osmolality,Calculated 287 (280-300); Potassium 3.6 mEq/L (3.5-4.5); Sodium 136 mEq/L (136-145); eGFR For African Americans > 60 (> 60); eGFR For Non-African Americans 52 (> 60)
[2016-10-21 04:53] LABS: INR 1.9; Prothrombin Time 21.1 Seconds (9.4-12.1)
[2016-10-21 05:04] LABS: Platelet Estimate Normal (Normal); Polychromasia 1+ (Not Present); Reactive Lymphocytes Present (Not Present)
[2016-10-21] MEDS: Bumetanide 1 MG TABLET PO SCH (06:21)
[2016-10-21] MEDS: Famotidine 20 MG TABLET PO SCH (06:21)
[2016-10-21 07:13] VITALS: BP 105/75
[2016-10-21] MEDS: Multivit/Ca/Min/Fe/FA 1 TAB TABLET PO SCH (07:55)
[2016-10-21] MEDS: *HR* Amiodarone 200 MG TABLET PO SCH (07:56)
[2016-10-21] MEDS: *HR* Digoxin 0.125 MG TABLET PO SCH (07:56)
[2016-10-21] MEDS: Finasteride 5 MG TABLET PO SCH (07:56)
[2016-10-21] MEDS: Aspirin 81 MG TAB.CHEW PO SCH (07:56)
[2016-10-21] MEDS: Diltiazem CD (24hr) 180 MG CAPSULE PO SCH (07:56)
[2016-10-21] MEDS: Metoprolol XL (24 HR) Succ 50 MG TAB.ER.24H PO SCH (07:56)
[2016-10-21] MEDS: Cholecalciferol (D-3) 1,000 UNIT TABLET PO SCH (07:56)
--- NOTE | 2016-10-21 09:44 | Discharge Summary ---
Date of Encounter: 10/21/16 Time of Encounter: 09:00 - Discharge Diagnosis (1) Atrial fibrillation with rapid ventricular response Priority: Primary Status: Acute (2) Acute respiratory failure with hypoxemia Priority: Primary Status: Acute (3) Acute worsening of stage 3 chronic kidney disease Priority: Primary Status: Acute (4) Acute diastolic heart failure Priority: Primary Status: Acute (5) Mitral regurgitation Priority: Secondary Status: Chronic Qualifiers: Cardiac valve disease etiology: nonrheumatic Qualified Code(s): I34.0 - Nonrheumatic mitral (valve) insufficiency (6) CAD (coronary artery disease) Priority: Secondary Status: Chronic Qualifiers: Coronary Disease-Associated Artery/Lesion type: [place] artery [place] vs. transplanted heart: [place] heart Associated angina: without angina Qualified Code(s): I25.10 - Atherosclerotic heart disease of [place] coronary artery without angina pectoris (7) Severe aortic stenosis by prior echocardiogram Priority: Secondary Status: Acute - Discharge Medications Prescriptions: Bumetanide [Bumex] 1 mg PO Q12HR #60 tab Amiodarone [Cordarone] 200 mg PO BID #66 tablet Digoxin [Lanoxin] 0.125 mg PO DAILY #30 tab GuaiFENesin ER [Mucinex] 1,200 mg PO BID #10 Oxygen 1 each .ROUTE HS #1 each Home Medications: Aspirin 81 mg PO DAILY 09/29/15 [History] Cholecalciferol (D-3) [Vitamin D] 2,000 unit PO DAILY 09/29/15 [History] Finasteride [Proscar] 5 mg PO DAILY 09/29/15 [History] Multivitamin [Multi-Day Vitamins] 1 each PO DAILY 09/29/15 [History] Tamsulosin [Flomax] 0.4 mg PO DAILY 09/29/15 [History] Vitamin E 100 unit PO DAILY 09/29/15 [History] Diltiazem CD (24hr) [Cardizem CD] 360 mg PO DAILY #30 cap.er.24h 10/03/15 [Rx] Metoprolol XL (24 HR) Succ [Toprol Xl] 75 mg PO BID #60 tab.er.24h 10/03/15 [Rx] Atorvastatin [Lipitor] 40 mg PO HS 10/13/16 [History] Amiodarone [Cordarone] 200 mg PO BID #66 tablet 10/20/16 [Rx] Bumetanide [Bumex] 1 mg PO Q12HR #60 tab 10/21/16 [Rx] Digoxin [Lanoxin] 0.125 mg PO DAILY #30 tab 10/21/16 [Rx] GuaiFENesin ER [Mucinex] 1,200 mg PO BID #10 10/21/16 [Rx] Oxygen 1 each .ROUTE HS #1 each 10/21/16 [Rx] Warfarin [Coumadin] 5 mg PO DAILY@1800 #0 10/21/16 [Rx] Allergies/Adverse Reactions: Allergies No Known Allergies Allergy (Verified 10/13/16 13:07) Date of admission: 10/13/16 14:55 Primary care physician: Rafael Ugarte MD Consults: 10/13/16 16:07 Consult to Physical Therapy [CONS] Routine Comment: Evaluate, develop and implement POC Reason for Consult: PT eval Consult to [employer] [CONS] Routine Reason for SW Consult: Discharge planning 10/13/16 16:08 Consult to Cardiology [CONS] Routine Comment: Consulting Provider: [facility] [place] Reason for Consult: a.fib with RVR Call Completed: Yes 10/17/16 15:28 Consult to Electrophysiology (EP) [CONS] Routine Consulting Provider: [facility] [place] Reason for Consult: afib. Call Completed: Yes - Patient Status Disposition: Home, Self-Care Condition: Good Functional capacity at discharge: independent ambulation Overall status at discharge: patient is progressing back to baseline - Discharge Instructions Instructions: Digoxin (By mouth), Bumetanide (By mouth), Decongestant/ Expectorant (By mouth), Amiodarone (By mouth), Heart Failure (DC), Atrial Fibrillation (DC), Heart Healthy Diet (DC), Vitamin K in Foods (DC), Fluid Restriction (DC) Follow Up With: anticoagulation, clinic [Other] - 10/25/16 11:00 am Stew Geronimo CNP [Advanced Practice Nurse] - 11/19/16 11:00 am Rafael Ugarte MD [Primary Care Provider] - 10/23/16 3:00 pm () - Diet and Activity Activity: wear oxygen at night (2L NC) Interval History: Patient has no chest pain. No shortness of breath. He is eager to go home. Hospital course: Mr. Delaney is a 75 year old male with past medical history of CAD, CKD3, MR , diastolic heart failure, A. fib on warfarin, and severe aortic stenosis who presented with the chief complaint of palpitations and shortness of breath. He was admitted with diagnosis of A. fib with RVR. Initially, he failed medical therapy and had an unsuccessful attempt of DCCV 10/17. He received IV digoxin and amiodarone drip with heart rate control. He also developed acute respiratory failure secondary to diastolic heart failure exacerbation and suspected COPD. He was started on nebulizations, diuretics and and Mucinex with resolution of respiratory failure during the daytime but he was still requiring oxygen at nighttime. PLAN: Follow-up in the cardiology clinic as scheduled. Follow up in the Coumadin clinic. - Time Spent with Patient Total time spent providing and/or coordinating discharge services: - Constitutional Vitals: Temp Pulse Resp BP Pulse Ox 97.7 F 86 16 105/75 99 10/21/16 07:10 10/21/16 08:13 10/21/16 07:10 10/21/16 07:10 10/21/16 07:10 General appearance: Present: cooperative, A&O X 3, pleasant, no acute distress, answers questions appropriately - Neck Neck exam general surgery: Present: supple, trachea midline. Absent: lymphadenopathy - Respiratory Respiratory exam: Present: CTAB - Cardiovascular Cardiovascular exam: Present: RRR - GI/Abdominal GI/Abdominal exam: Present: normal bowel sounds, soft. Absent: distended, tenderness - Extremities Exam Extremities exam: Present: pedal edema (1+ lower extremity edema) - Back Exam Back exam: Absent: CVA tenderness (L), CVA tenderness (R) - Neurological Exam Neurological exam: Present: alert, oriented X3, no focal deficits, strengths equal and symetr throughout. Absent: facial droop, speech deficit - Skin Skin exam: Absent: rash
[2016-10-21] MEDS ORDERED: *HR* Warfarin 7.5 MG TABLET PO ONE (18:00)
== END 2016-10-21 10:40 | disposition home or self-care (01) | DRG 308 ==
LOC: EMEROO 09:54 → 2NNU 14:55 → SUATTDRO 14:55 → 2NNU 17:13
PROVIDERS: ADMIT Family Medicine; ATTEND Internal Medicine